=== PATIENT | male | born 1960 | race Caucasian/White ===

== ENCOUNTER 2022-09-27 06:23 | Day surgery (SDC) | payer OTHER, SELFPAY ==
[2022-07-26 12:17] VITALS: BMI 29.4
[2022-09-23 09:14] VITALS: BMI 29.4
--- NOTE | 2022-09-27 06:31 | W.PM.OPSFHP ---
Same Day Surgery H&P Indication for Procedure/HPI DATE OF PROCEDURE: September 27, 2022 CHIEF COMPLAINT/INDICATIONFOR SURGICAL PROCEDURE: Screening colonoscopy PREOP DIAGNOSIS: Screening colonoscopy PLANNED PROCEDURE: Operation Date: 09/27/22 07:30 Proposed Procedures p Colonoscopy 66229,Z12.11(Not Applicable) - Lane Mcrae MD This is a pleasant 63 years old gentleman referred to my practice for screening colonoscopy. Apparently the patient never had a colonoscopy before. And the Cologuard was tested positive. ROS All systems have been reviewed negative except as for the above or per problem list. Medications/Allergies* Home Medications Medication Instructions Recorded Confirmed Type albuterol sulfate 90 mcg/actuation 2 puff inhalation QID 05/12/22 09/23/22 History aerosol inhaler bumetanide 1 mg tablet 1 mg PO DAILY 05/12/22 09/23/22 History carvedilol 25 mg tablet 25 mg PO BID 05/12/22 09/23/22 History ergocalciferol (vitamin D2) 1 tab PO DAILY 05/12/22 09/23/22 History fluticasone furoate 100 1 inh inhalation DAILY 05/12/22 09/23/22 History mcg-vilanterol 25 mcg/dose inhalation powder (Breo Ellipta) garlic 1 tab PO DAILY 05/12/22 09/23/22 History insulin glargine U-300 conc 300 30 unit SUBCUT BID 05/12/22 09/23/22 History unit/mL (3 mL) subcutaneous pen insulin lispro 100 unit/mL See Rx Instructions SUBCUT TID 05/12/22 09/23/22 History subcutaneous pen (Humalog KwikPen (U-100) Insulin) rivaroxaban 15 mg tablet 15 mg PO DAILY 05/12/22 09/23/22 History sacubitril 97 mg-valsartan 103 mg 0.5 tab PO BID 05/12/22 09/23/22 History tablet (Entresto) simvastatin 40 mg tablet 40 mg PO DAILY 05/12/22 09/23/22 History umeclidinium 62.5 mcg/actuation 1 inh inhalation DAILY 05/12/22 09/23/22 History blister powder for inhalation (Incruse Ellipta) Allergies/Adverse Reactions Allergy/AdvReac Type Severity Reaction Status Date / Time No Known Allergies Allergy Verified 09/27/22 06:32 Pertinent History/Comorbid Conditions* Medical History (Updated 05/13/22 @ 14:17 by Cory Jones DO) Arthritis CHF (congestive heart failure) Chronic kidney disease COPD (chronic obstructive pulmonary disease) Diabetes mellitus Hidradenitis suppurativa History of cardiac pacemaker On home oxygen therapy Paroxysmal atrial fibrillation Thromboembolism Surgical History (Updated 05/13/22 @ 14:17 by Cory Jones DO) History of cataract surgery History of heart bypass surgery History of intravascular stent placement Aortic History of shoulder surgery Social History Smoking and tobacco status: current every day smoker Pertinent Exam Findings alert, oriented x 3, clear to auscultation bilaterally (Right upper chest pacemaker in place), regular rate & rhythm and procedure specific exam findings (Abdominal exam nontender nondistended soft) Recommendations Surgery/Procedure today (Colonoscopy with possible biopsy) Other Plans: Plan of care; After thorough history and physical examination and reviewing the chart, plan to perform screening colonoscopy. I discussed with the patient in details the risks,benefits,alternatives and indications.The risk of aspiration, bleeding, soft tissue injury, perforation of the colon ,missed lesions and other potential concomitant complications were explained to the patient in details,also the potential need for Laproscoy/Laparotomy to repair any related complications including but not limited to colectomy and or Closotomy.The patient understood this well and did agree to proceed. Rationale was carefully and clearly discussed with the patient.Appropriate informed consent have been reviewed and signed All questions have been answered and all concerns have been addressed to patient's satisfaction. Verbal and written Instructions were given to the patient for colonoscopy prep Coding Level of Care Code Acute Interpreter For [employer] for Emelia Huynh
[2022-09-27 06:47] VITALS: BP 104/65; PULSE 59; RESP 18; TEMP 36.1; O2SAT 98
[2022-09-27] MEDS: sodium chloride 0.9% 1,000 ML 30 ML IV (06:55)
[2022-09-27 06:57] LABS: Glucose Point of Care 253 mg/dL (70-110)
--- NOTE | 2022-09-27 07:57 | ANES.PREANE2 ---
Pre-Anesthetic Assessment Height/Weight: Height 1.78 m Weight 92.986 kg Temp Pulse Resp BP Pulse Ox O2 Del Method 97 F L 59 L 18 104/65 98 09/27/22 06:47 09/27/22 06:47 09/27/22 06:47 09/27/22 06:47 09/27/22 06:47 09/27/22 06:47 Preop Diagnosis: Screening colonoscopy Operation Date: 09/27/22 07:30 Proposed Procedures p Colonoscopy 84079,Z12.11(Not Applicable) - Lane Mcrae MD Was Beta Tien taken within 24 hours: N/A Was Clonidine taken within 24 hours: N/A Last intake: Intake Last Liquid Date 09/26/22 Last Liquid Time 22:00 Last Solid Date 09/26/22 Last Solid Time 18:00 Social Tobacco and No alcohol 1 pack(s) per day last cig last night Exam alert, oriented x 3, clear to auscultation bilaterally and regular rate & rhythm Airway Cervical ROM: within normal limits Mallampati: Class I Dentition: full History/ROS No significant history except as noted Pulmonary Chronic Obstructive Pulmonary Disease oxygen as needed. covid 2 months ago, not hospitalized CV/HEM Atrial Fibrillation, Arrythmia and Congestive Heart Failure saw heart doctor 3 months ago. denies angina. PPM/ICD None reported Hepatic None reported GI Gastroesophageal Reflux Disease Metabolic Diabetes Mellitus insulin [place] [facility] [place] None reported Neuropsych None reported Anesthetic Plan ASA status: 3 Anesthesia: Anesthesia Evaluation and MAC Risk of > 500 ml blood loss (7ml/kg in children): Yes, adequate IV access and fluids planned Medications/Allergies Home Medications Medication Instructions Recorded Confirmed Last Taken Type albuterol sulfate 90 mcg/actuation 2 puff inhalation QID 05/12/22 09/23/22 Unknown History aerosol inhaler bumetanide 1 mg tablet 1 mg PO DAILY 05/12/22 09/23/22 09/25/22 History carvedilol 25 mg tablet 25 mg PO BID 05/12/22 09/23/22 09/26/22 17:00 History ergocalciferol (vitamin D2) 1 tab PO DAILY 05/12/22 09/23/22 09/25/22 History fluticasone furoate 100 1 inh inhalation DAILY 05/12/22 09/23/22 09/25/22 History mcg-vilanterol 25 mcg/dose inhalation powder (Breo Ellipta) garlic 1 tab PO DAILY 05/12/22 09/23/22 09/25/22 History insulin glargine U-300 conc 300 30 unit SUBCUT BID 05/12/22 09/23/22 09/25/22 History unit/mL (3 mL) subcutaneous pen insulin lispro 100 unit/mL See Rx Instructions SUBCUT TID 05/12/22 09/27/22 09/26/22 07:00 History subcutaneous pen (Humalog KwikPen 2 units (U-100) Insulin) rivaroxaban 15 mg tablet 15 mg PO DAILY 05/12/22 09/23/22 09/25/22 History sacubitril 97 mg-valsartan 103 mg 0.5 tab PO BID 05/12/22 09/23/22 09/25/22 History tablet (Entresto) simvastatin 40 mg tablet 40 mg PO DAILY 05/12/22 09/23/22 09/25/22 History umeclidinium 62.5 mcg/actuation 1 inh inhalation DAILY 05/12/22 09/23/22 09/25/22 History blister powder for inhalation (Incruse Ellipta) Allergies Allergy/AdvReac Type Severity Reaction Status Date / Time No Known Allergies Allergy Verified 09/27/22 06:32 Current Medications Generic Name Dose Route Start Last Admin Trade Name Freq PRN Reason Stop Dose Admin Sodium Chloride 1,000 mls @ 30 mls/hr 09/27/22 06:30 09/27/22 06:55 Sodium Chloride 0.9% IV 09/28/22 06:29 30 mls/hr .Q24H RICK Administration PFSH Anesthesia Medical History Arthritis CHF (congestive heart failure) Chronic kidney disease COPD (chronic obstructive pulmonary disease) Diabetes mellitus Hidradenitis suppurativa History of cardiac pacemaker On home oxygen therapy Paroxysmal atrial fibrillation Thromboembolism Surgical History History of cataract surgery History of heart bypass surgery History of intravascular stent placement Aortic History of shoulder surgery Social History Smoking and tobacco status: current every day smoker Data Anesthesia Cardiac Studies: No Data to Display
[2022-09-27 08:22] VITALS: BP 76/48; PULSE 62; RESP 18; TEMP 36.1; O2SAT 94
[2022-09-27 08:33] VITALS: BP 102/56; PULSE 56; RESP 18; TEMP 36.2; O2SAT 98
--- NOTE | 2022-09-27 15:42 | ANE.PACU2 ---
Inpatient post-anesthesia follow up: Airway intact: Yes Vital signs: Temperature 97.2 F Pulse Rate 56 Respiratory Rate 18 Blood Pressure 102/56 Pulse Oximetry 98 Oxygen Delivery Me thod Room Air Oxygen Flow Rate Fraction of Inspir ed Oxygen Hydration adequate: Yes Nausea and vomiting: No Pain level: 1 Mental status: Baseline
== END 2022-09-27 08:51 | disposition home or self-care (01) ==
PROVIDERS: PCP Family Medicine; Visit Provider Surgery
PROC: 0DJD8ZZ Inspection of Lower Intestinal Tract, Via Natural or Artificial Opening Endoscopic (ICD-10-PCS; CPT 45378; principal; 2022-09-27 07:30)
DX: Z12.11 Encounter for screening for malignant neoplasm of colon (principal); M19.90 Unspecified osteoarthritis, unspecified site; J44.9 Chronic obstructive pulmonary disease, unspecified; Z95.0 Presence of cardiac pacemaker; I48.0 Paroxysmal atrial fibrillation; E11.22 Type 2 diabetes mellitus with diabetic chronic kidney disease; N18.9 Chronic kidney disease, unspecified; I50.9 Heart failure, unspecified; Z99.81 Dependence on supplemental oxygen; Z79.4 Long term (current) use of insulin; F17.210 Nicotine dependence, cigarettes, uncomplicated
CPT/HCPCS: 36416; 45378; 82962; J2704; J7030

== ENCOUNTER 2023-03-29 06:10 | Inpatient (IN) | payer MEDICARE, MEDICAID, SELFPAY ==
[2023-03-29] VITALS (13 sets, daily range): BP systolic 102–121; BP diastolic 60–78; PULSE 58–71; RESP 15–96; TEMP 36.6; O2SAT 92–97; BMI 29.9
--- NOTE | 2023-03-29 06:12 | XR_ITS ---
WS: [id number] PORTABLE CHEST HISTORY: dyspnea/cough COMPARISON: None available. Mild elevation of the LEFT hemidiaphragm. Moderate portion of the RIGHT lung is being obscured by the cardiac pacer defibrillator generator. Mild hazy attenuation throughout the lungs suggesting mild fluid overload. No focal consolidation. No pleural effusion or pneumothorax. Cardiac size: Mildly enlarged cardiac silhouette. Mediastinum/Aorta: Atherosclerosis aorta is mild. Prior CABG. No osseous abnormality seen. XR/XR chest 1V portable [id number] IMPRESSION: 1. No pneumonia or dense consolidation. 2. Mild chronic emphysema with mild interstitial edema versus pneumonitis. 3. Mild cardiomegaly.
--- NOTE | 2023-03-29 06:15 | W.ED.SOB ---
HPI - SOB/Dyspnea General: Chief Complaint: Shortness of Breath/Dyspnea Stated Complaint: SOB Time Seen by Provider: 03/29/23 06:11 Source: patient Mode of arrival: EMS History of Present Illness: HPI Narrative: 60-year-old male presents emergency room via EMS complaining of shortness of breath. He has a history of congestive heart failure and atrial fibrillation he has noticed last couple of days he has worsening orthopnea. He did take extra Bumex last night but does not feel like it really helped at all. He was given a nebulizer in route he states that did help some. EMS reported prior to the nebulizer his sats were in the upper 80s on arrival here on room air he is maintaining sats in the mid to low 90s. He says he has had intermittent chest comfort does not have any chest pain at this time he is known history coronary disease previous bypass graft. MD elicited complaint: shortness of breath and cough Pertinent past history: COPD and congestive heart failure Onset (ago): day(s) Timing: intermittent Severity: mild Exacerbating factors: exertion and coughing Relieving factors: oxygen, bronchodilators and upright position Known history of: COPD and congestive heart failure Associated symptoms: Reports chest pain and cough; Deny abdominal pain, chest congestion, diaphoresis, dizziness, extremity pain, fever(s), hemoptysis, lightheadedness, myalgias, nausea, orthopnea, palpitations, paresthesias, polydipsia, polyuria, rash, sense of impending doom, syncope or vomiting Treatment prior to arrival: oxygen and bronchodilator Review of Systems Const: Denies: fever(s), chills, body aches, change in appetite, fatigue, malaise or diaphoresis ENMT: Denies: throat pain, ear or mastoid pain, nasal discharge or nasal congestion Card: Reports: chest pain; Denies: palpitations, edema, lightheadedness, syncope, dyspnea on exertion or orthopnea Resp: Denies: dyspnea, productive cough, non-productive cough, hemoptysis or chest congestion GI: Denies: abdominal pain, nausea, vomiting, hematemesis, coffee ground emesis, diarrhea, constipation, bloating, hematochezia or melena : Denies: flank pain, dysuria, urinary frequency or urinary urgency Musc: Denies: extremity pain Skin/Breast: Denies: rash or pruritus Neuro: Denies: dizziness Endo: Denies: polyuria or polydipsia PFSH ED PFSH: Medical History Arthritis CHF (congestive heart failure) Chronic kidney disease COPD (chronic obstructive pulmonary disease) Diabetes mellitus Hidradenitis suppurativa History of cardiac pacemaker On home oxygen therapy Paroxysmal atrial fibrillation Thromboembolism Surgical History History of cataract surgery History of heart bypass surgery History of intravascular stent placement Aortic History of shoulder surgery Social History Smoking and tobacco status: current every day smoker Physical Exam Const: GENERAL APPEARANCE: cooperative and comfortable ORIENTATION/CONSCIOUSNESS: Yes awake, Yes oriented to person, Yes oriented to place and Yes oriented to time HENMT: COMMON NORMALS: normocephalic, atraumatic and hearing grossly normal bilaterally HEAD & SCALP: normocephalic and atraumatic Resp: COMMON NORMALS: normal respiratory effort, No retractions and No use of accessory muscles AUSCULTATION: crackles Cardio: COMMON NORMALS: regular rhythm and No murmurs present (Cardio) RATE: bradycardic RHYTHM: regular rhythm GI: COMMON NORMALS: Soft to palpation and No hepatosplenomegaly present AUSCULTATION: Yes normoactive bowel sounds PALPATION: Yes Soft to palpation, No Tenderness to palpation present (GI), No Guarding due to palpation present (GI) and Yes No hepatosplenomegaly present Extremity: COMMON NORMALS: normal to inspection, capillary refill normal, no clubbing, cyanosis or edema, no calf tenderness and no pedal edema Neuro: SENSORIUM/ORIENTATION: Yes oriented to person, Yes oriented to place and Yes oriented to time Skin: COMMON NORMALS: no rashes or lesions noted GENERAL SKIN EXAM: no rashes or lesions noted Course Vital Signs: Vital signs: Vital Signs Temperature 97.8 F 03/29/23 06:15 Pulse Rate 64 03/29/23 13:43 Respiratory Rate 19 H 03/29/23 13:43 Blood Pressure 113/78 03/29/23 13:43 Pulse Oximetry 97 03/29/23 13:43 Oxygen Delivery Me thod Nasal Cannula 03/29/23 13:49 Oxygen Flow Rate 2 03/29/23 10:32 MDM - SOB/Dyspnea Medical Decision Making Patient is mildly fluid overloaded. We did diurese him in the ER try to titrate his oxygen down however he desatted to 87 to 88% while at rest. He does have significant lower extremity edema and findings of congestive vascular congestion of the chest x-ray. Unfortunately also has chronic renal disease. We will admit discussed with hospitalist orders written Medical Records I reviewed the patient's medical records. Lab Data I reviewed the patient's lab results. 03/29/23 06:18 03/29/23 06:18 Labs/Radiology: Radiology Impressions Chest X-Ray 03/29/23 06:12 IMPRESSION: 1. No pneumonia or dense consolidation. 2. Mild chronic emphysema with mild interstitial edema versus pneumonitis. 3. Mild cardiomegaly. Laboratory Results WBC 5.2 10^3/uL (4.0-10.0) 03/29/23 06:18 RBC 4.33 10^6/uL (4.1-5.3) 03/29/23 06:18 Hgb 13.8 g/dL (11.7-16.6) 03/29/23 06:18 Hct 42.8 % (42.0-52.0) 03/29/23 06:18 MCV 98.8 fl (80-94) H 03/29/23 06:18 MCH 31.9 pg (28.0-34.0) 03/29/23 06:18 MCHC 32.2 g/dL (30.0-36.0) 03/29/23 06:18 RDW 13.9 % (12.1-15.1) 03/29/23 06:18 Plt Count 144 10^3/cmm (130-400) 03/29/23 06:18 MPV 11.1 fL (7.4-10.4) H 03/29/23 06:18 Neut % (Auto) 64.6 % 03/29/23 06:18 Lymph % (Auto) 22.5 % 03/29/23 06:18 Wirt % (Auto) 7.3 % 03/29/23 06:18 Eos % (Auto) 4.2 % 03/29/23 06:18 Baso % (Auto) 1.2 % 03/29/23 06:18 Neut # (Auto) 3.37 10^3/uL (1.8-7.7) 03/29/23 06:18 Lymph # (Auto) 1.2 10^3/uL (0.8-4.8) 03/29/23 06:18 Wirt # (Auto) 0.4 10^3/uL (0.2-0.9) 03/29/23 06:18 Eos # (Auto) 0.2 10^3/uL (0.0-0.8) 03/29/23 06:18 Baso # (Auto) 0.1 10^3/uL (0.0-0.1) 03/29/23 06:18 Nucleated RBC % (auto) 0 % 03/29/23 06:18 Nucleated RBCs # 0.0 /100WBC 03/29/23 06:18 Specimen Type Arterial 03/29/23 06:29 Sample Site Radial,left 03/29/23 06:29 ABG pH 7.35 (7.35-7.45) 03/29/23 06:29 ABG pCO2 49.0 mmHg (35-45) H 03/29/23 06:29 ABG pO2 58.2 mmHg (80.0-100.0) L 03/29/23 06:29 ABG HCO3 26.7 mmol/L (22-26) H 03/29/23 06:29 ABG O2 Saturation 91.8 03/29/23 06:29 ABG Base Excess 0.4 mmol/L (-2.0-2.0) 03/29/23 06:29 Dimitrios Test Pos 03/29/23 06:29 A-a O2 Gradient Not Reportable 03/29/23 06:29 Hematocrit 41.5 % (42-52) L 03/29/23 06:29 Hgb O2 Saturation 85.3 % (95-100) L 03/29/23 06:29 Carboxyhemoglobin 7.6 %THgb (0.4-20.1) 03/29/23 06:29 Methemoglobin Not Reportable 03/29/23 06:29 Total Hemoglobin 13.5 g/dL (14-18) L 03/29/23 06:29 Sodium 138.0 mmol/L (131-143) 03/29/23 06:29 Potassium 4.5 mmol/L (3.5-5.0) 03/29/23 06:29 Glucose 199.0 mg/dL (70-115) H 03/29/23 06:29 Ionized Calcium 1.2 mmol/L (1.1-1.4) 03/29/23 06:29 O2 Delivery Device None 03/29/23 06:29 FiO2 21.0 % 03/29/23 06:29 Dispatcher Chief Oil ID [email or web address] 03/29/23 06:29 Sodium 138 mmol/L (136-145) 03/29/23 06:18 Potassium 4.6 mmol/L (3.5-5.1) 03/29/23 06:18 Chloride 99 mmol/L (98-107) 03/29/23 06:18 Carbon Dioxide 27 mmol/L (22-29) 03/29/23 06:18 Anion Gap 16.6 (5-19) 03/29/23 06:18 BUN 66 mg/dL (8-23) H 03/29/23 06:18 Creatinine 3.0 mg/dL (0.7-1.2) H 03/29/23 06:18 GFR Calculation 21.3 mL/min (90-130) L 03/29/23 06:18 Glucose 173 mg/dL (65-115) H 03/29/23 06:18 POC Glucose 116 mg/dL (70-110) H 03/29/23 06:38 Calculated Osmolality 309 mOsm/kg (285-295) H 03/29/23 06:18 Calcium 8.8 mg/dL (8.5-10.5) 03/29/23 06:18 Total Bilirubin 0.6 mg/dL (0.15-1.2) 03/29/23 06:18 AST 10 U/L (0-40) 03/29/23 06:18 ALT 9 U/L (0-41) 03/29/23 06:18 Alkaline Phosphatase 98 U/L (40-130) 03/29/23 06:18 Troponin T Baseline 56 ng/L (0-15) H 03/29/23 06:18 Troponin T 120 Minute 55.94 ng/L (0-15) H 03/29/23 08:20 Delta Troponin T -0.06 ABS# (0-10) L 03/29/23 08:20 Troponin T Hi Sens 6Hr 49.46 ng/L (0-15) H 03/29/23 12:00 Troponin T Hi Sens 6Hr Delta -6.54 ng/L (0-12) L 03/29/23 12:00 Total Protein 6.9 g/dL (6.6-8.7) 03/29/23 06:18 Albumin 3.8 g/dL (3.5-5.2) 03/29/23 06:18 Globulin 3.1 g/dL (1.3-4.6) 03/29/23 06:18 Discharge Plan Discharge Patient Disposition: Admitted As Inpatient Admit Provider: David Jimenes Clinical Impression: Congestive heart failure Condition: Stable Coding Level of Care Code ED Youth Corrections Officer for Emelia Huynh
--- NOTE | 2023-03-29 06:22 | ECG_ITS ---
[facility] Test Date: 2023-03-29 Pat Name: Suleman Jacobs Department: Room: Gender: Male Cyber Security: : 1960 Requested By: Sage Rodriguez Order Number: [id number] Alison MD: Tali Foss M.D. Measurements Intervals [place] Rate: 64 P: 47 HI: 186 QRS: -53 QRSD: 190 T: 121 QT: 501 QTc: 518 Interpretive Statements ELECTRONIC VENTRICULAR PACEMAKER ABNORMAL RHYTHM ECG No previous ECG available for comparison Electronically Signed On 03-29-2023 16:24:46 CDT by Tali Foss M.D. [email or web address] [email or web address] [id number]
[2023-03-29] MEDS: ipratropium-albuterol 3 mL Neb INHALATION ×3 (06:26→21:36)
[2023-03-29 06:30] LABS: Basophils # 0.1 10^3/uL (0.0-0.1); Basophils % 1.2 %; Eosinophils # 0.2 10^3/uL (0.0-0.8); Eosinophils % 4.2 %; Hematocrit 42.8 % (42.0-52.0); Hemoglobin 13.8 g/dL (11.7-16.6); Lymphocytes # 1.2 10^3/uL (0.8-4.8); Lymphocytes % 22.5 %; Mean Corpuscular HGB Conc 32.2 g/dL (30.0-36.0); Mean Corpuscular Hemoglobin 31.9 pg (28.0-34.0); Mean Corpuscular Volume 98.8 fl (80-94); Mean Platelet Volume 11.1 fL (7.4-10.4); Monocytes # 0.4 10^3/uL (0.2-0.9); Monocytes % 7.3 %; Neutrophils # 3.37 10^3/uL (1.8-7.7); Neutrophils % 64.6 %; Nucleated Red Blood Cells % 0 %; Platelet Count 144 10^3/cmm (130-400); Red Blood Count 4.33 10^6/uL (4.1-5.3); Red Cell Distribution Width 13.9 % (12.1-15.1); White Blood Count 5.2 10^3/uL (4.0-10.0)
[2023-03-29] MEDS: dexamethasone 10 mg/mL INJ IVP (06:39)
[2023-03-29] MEDS: bumetanide 0.25 mg/mL SDV 4 mL 2 MG IVP (06:40)
[2023-03-29 06:46] LABS: Alanine Aminotransferase 9 U/L (0-41); Albumin Level 3.8 g/dL (3.5-5.2); Alkaline Phosphatase 98 U/L (40-130); Anion Gap 16.6 (5-19); Aspartate Amino Transferase 10 U/L (0-40); Blood Urea Nitrogen 66 mg/dL (8-23); Calcium 8.8 mg/dL (8.5-10.5); Carbon Dioxide 27 mmol/L (22-29); Chloride 99 mmol/L (98-107); Globulin 3.1 g/dL (1.3-4.6); Glomerular Filtration Rate 21.3 mL/min (90-130); Glucose 173 mg/dL (65-115); Osmolality Calculated 309 mOsm/kg (285-295); Potassium 4.6 mmol/L (3.5-5.1); Sodium 138 mmol/L (136-145); Total Bilirubin 0.6 mg/dL (0.15-1.2); Total Protein 6.9 g/dL (6.6-8.7); Troponin(5th) Baseline 56 ng/L (0-15)
[2023-03-29 06:48] LABS: ABG PH Result 7.35 (7.35-7.45); Base Excess ABG 0.4 mmol/L (-2.0-2.0); Blood Gas Allen Test POS; HCO3 ABG 26.7 mmol/L (22-26); Oxygen Saturation ABG 91.8; PO2 ABG 58.2 mmHg (80.0-100.0); Potassium Level - ABG 4.5 mmol/L (3.5-5.0)
[2023-03-29 06:49] LABS: Arterial Blood Gas Hematocrit 41.5 % (42-52); Blood Gas Sample Type Arterial
[2023-03-29 06:50] LABS: Ionized Calcium Level - ABG 1.2 mmol/L (1.1-1.4); Total Hemoglobin 13.5 g/dL (14-18)
[2023-03-29 06:51] LABS: Carboxyhemoglobin 7.6 %THgb (0.4-20.1); HGB O2 Sat 85.3 % (95-100)
[2023-03-29 06:52] LABS: Glucose Point of Care 116 mg/dL (70-110)
--- NOTE | 2023-03-29 08:22 | ECG_ITS ---
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 Measurements Intervals [place] Rate: 67 P: 89 PA: 138 QRS: -79 QRSD: 273 T: 110 QT: 612 QTc: 646 Interpretive Statements ELECTRONIC VENTRICULAR PACEMAKER PROLONGED QT INTERVAL CRITICAL TEST RESULT Compared to ECG 03/29/2023 06:15:51 Prolonged QT interval now present Electronically Signed On 03-29-2023 16:29:36 CDT by Tali Foss M.D. [id number]
[2023-03-29 09:06] LABS: Troponin 5 2HR 55.94 ng/L (0-15)
[2023-03-29 09:07] LABS: Troponin 5 2HR Delta -0.06 ABS# (0-10)
--- NOTE | 2023-03-29 10:04 | PC.PHAR ---
Addendum entered by Agustina Chiang 03/29/23 10:07: rx bottle for bumetanide 1mg take 2mg qam filled 03/18/23 90d/s pt states he is only taking 1mg qam states the dr decreased due to his kidney function Original Note: pt and pts verified pts medications-pt and pts states the pt hasnt had a machine to check his blood sugar for 6 to 8 weeks-states the pt hasnt used his levemir flexpen since 03/23/23 and not used his novolog flexpen for 6-8 weeks-pt states the dr dced his farxiga 10mg daily filled on 03/18/23 30d/s-notes are made in the pharmacy comments
--- NOTE | 2023-03-29 12:22 | ECG_ITS ---
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 Measurements Intervals [place] Rate: 59 P: 74 WV: 133 QRS: -66 QRSD: 257 T: 123 QT: 625 QTc: 624 Interpretive Statements ELECTRONIC VENTRICULAR PACEMAKER PROLONGED QT INTERVAL CRITICAL TEST RESULT Compared to ECG 03/29/2023 08:18:17 No significant changes Electronically Signed On 03-29-2023 16:28:45 CDT by Tali Foss M.D. [id number]
[2023-03-29 12:50] LABS: Troponin 5 6HR 49.46 ng/L (0-15); Troponin 5 6HR Delta -6.54 ng/L (0-12)
--- NOTE | 2023-03-29 13:48 | PM.HP ---
Providers/Chief Complaint Admitting Physician: David Jimenes MD Primary Care Provider: Serenity Andersen DO Chief Complaint: SOB History of Present Illness Suleman Jacobs is a 62 year old male with PMH of HFrEF, S/P AICD, DVT On xaralto, pax A.FIb,COPD, CKD came in today with c/o worsening SOB, orthopnea,PND,weight gain,worseing B/L L/E Swelling going on for the last 1 week, denied any chest pain,fever,cough,sick contact. xray chest showed: Mild chronic emphysema with mild interstitial edema versus pneumonitis.his other vitals and labs have been reviewed,patient received bumix 2 mg i.v today with good urine output and with some improvement HIS sob. Review of Systems General: Reports: 10 or more systems reviewed and unremarkable except in HPI and below Const: Denies: fever(s), chills, body aches, change in appetite or diaphoresis Card: Reports: edema, swelling of feet/ankles, dyspnea on exertion and orthopnea; Denies: palpitations or leg pain with exertion Resp: Reports: dyspnea; Denies: productive cough, wheezing or pain on inspiration GI: Denies: abdominal pain, nausea, vomiting, diarrhea or constipation : Denies: flank pain or difficulty urinating Musc: Denies: back pain, extremity pain or extremity swelling Neuro: Denies: headache(s), difficulty walking or confusion Medications/Allergies Home Medications Medication Instructions Recorded Confirmed Last Taken Type albuterol sulfate 90 mcg/actuation 2 puff inhalation QID PRN 05/12/22 03/29/23 Unknown History aerosol inhaler Shortness Of Breath bumetanide 1 mg tablet 1 mg PO QAM 05/12/22 03/29/23 03/29/23 History see pharmacy comment carvedilol 25 mg tablet 50 mg PO BID 05/12/22 03/29/23 03/28/23 History rivaroxaban 15 mg tablet 15 mg PO QPM 05/12/22 03/29/23 03/28/23 History simvastatin 40 mg tablet 40 mg PO BEDTIME 05/12/22 03/29/23 03/28/23 History cholecalciferol (vitamin D3) 10 10 mcg PO QAM 03/29/23 03/29/23 03/28/23 History mcg (400 unit) capsule (Vitamin D3) garlic 1,000 mg capsule 1,000 mg PO BEDTIME 03/29/23 03/29/23 03/28/23 History insulin aspart U-100 100 unit/mL See Rx Instructions .Route .COMPLEX 03/29/23 03/29/23 Unknown History (3 mL) subcutaneous pen (Novolog FlexPen U-100 Insulin aspart) insulin detemir U-100 100 unit/mL 30 unit SUBCUT BEDTIME 03/29/23 03/29/23 03/23/23 History (3 mL) subcutaneous pen (Levemir not used FlexPen) since 03/23/ sacubitril 49 mg-valsartan 51 mg 1 tab PO BID 03/29/23 03/29/23 03/28/23 History tablet (Entresto) umeclidinium 62.5 mcg-vilanterol 1 ea inhalation DAILY 03/29/23 03/29/23 Unknown History 25 mcg/actuation powdr for inhalation (Anoro Ellipta) Allergies Allergy/AdvReac Type Severity Reaction Status Date / Time No Known Allergies Allergy Verified 03/29/23 09:55 PFSH Acute PFSH: Medical History (Updated 03/29/23 @ 22:33 by David Jimenes MD) Arthritis CHF (congestive heart failure) Chronic kidney disease COPD (chronic obstructive pulmonary disease) Diabetes mellitus Hidradenitis suppurativa History of cardiac pacemaker On home oxygen therapy Paroxysmal atrial fibrillation Thromboembolism Surgical History History of cataract surgery History of heart bypass surgery History of intravascular stent placement Aortic History of shoulder surgery Social History Smoking and tobacco status: current every day smoker Vitals/I&O/Wt Last Vital Signs Temp 97.8 F 03/29/23 06:15 Pulse 66 03/29/23 10:32 Resp 15 03/29/23 09:20 BP 114/66 03/29/23 10:32 Pulse Ox 97 03/29/23 10:32 O2 Del Method Nasal Cannula 03/29/23 10:32 O2 Flow Rate 2 03/29/23 10:32 Weight last 48 hrs Weight 94.801 kg Physical Exam Const: COMMON NORMALS: patient oriented x3 HENMT: COMMON NORMALS: normocephalic and atraumatic HEAD & SCALP: normocephalic Resp: COMMON NORMALS: normal respiratory effort OTHER: Right basal crackles present, minimal fine wheezing, diminished air entry Cardio: COMMON NORMALS: regular rate, regular rhythm, S1 normal heart sound present, S2 normal heart sound present, No gallops present (Cardio), No murmurs present (Cardio), No rub (Cardio) and Peripheral pulses 2+ throughout RATE: regular rate RHYTHM: regular rhythm HEART SOUNDS: S1 normal heart sound present and S2 normal heart sound present PERIPHERAL PULSES: Peripheral pulses 2+ throughout GI: COMMON NORMALS: Normal to inspection, nondistended, normoactive bowel sounds present, Soft to palpation, non-tender, No hepatosplenomegaly present and no masses AUSCULTATION: Yes normoactive bowel sounds PALPATION: Yes Soft to palpation and Yes No hepatosplenomegaly present RECTAL EXAM: Yes deferred Extremity: NARRATIVE EXTREMITY EXAM: 1+ bilateral lower extremity pitting Neuro: COMMON NORMALS: patient oriented x3 Data 03/29/23 06:18 03/29/23 06:18 A&P Assessment and plan (1) Decompensated heart failure: (2) COPD (chronic obstructive pulmonary disease): (3) Acute kidney injury superimposed on CKD: (4) Elevated troponin: Plan 62 year old male with PMH of HFrEF, S/P AICD, DVT On xaralto, pax A.FIb,COPD, CKD came in today with c/o worsening SOB, orthopnea,PND,weight gain,worseing B/L L/E Swelling going on for the last 1 week, denied any chest pain,fever,cough,sick contact. Assessment : Decompensated HFrEF : xray chest showed: Mild chronic emphysema with mild interstitial edema versus pneumonitis.his other vitals and labs have been reviewed,patient received bumix Follow pro BNP Patient recently had 2D Echo done by his counseling psychologist, will get the records. Monitor I/O Charting Daily weight continue bumix 2 mg I.V Daily Monitor electrolytes Telemetry monitoring Likely ALEXIS ON CKD:likely 2/2 CRS SCR On a admission: 3 Baseline SCR Unkown Monitor BMP RENAL u/s Inatke/O Charting Avoid Nephrtotoxics Possible renal consult H/O DVT : On xaralto at home will place him on lovenox for now h/o Px A.fib : Continue carvedilol On Lovenox for Ac H/O COPD: Duo nebs , oxygen as needed Code status : Full code dvt ppx: on lovenox. Attestations Medical Necessity Statement*: Patient needs to be in hospital for the management of H/F.Anticipated LOS Greater then 2 midnights, Coding Level of Care Code Acute Code for Chg Fwd Diagnoses Decompensated heart failure I50.9 COPD (chronic obstructive pulmonary disease) J44.9 Acute kidney injury superimposed on CKD N17.9; N18.9 Elevated troponin R77.8
[2023-03-29 16:44] LABS: Glucose Point of Care 320 mg/dL (70-110)
[2023-03-29] MEDS: insulin lispro 100 unit/1 mL SUBCUT (17:09)
[2023-03-29] MEDS: carvedilol 25 mg Tablet 50 MG PO (17:10)
[2023-03-29 18:39] LABS: Protein Urine Neg (Negative); Urine Appearance Clear (CLEAR); Urine Color Yellow (Yellow); pH Urine 5 (5-7)
[2023-03-29 18:40] LABS: Add Urine Microscopic? YES; Bilirubin Urine Neg (Negative); Blood Urine 2+ (Negative); Glucose Urine UA 1+ (Normal); Ketones Urine 1+ (Negative); Leukocyte Esterase Urine Negative (Negative); Nitrate Urine Negative (Negative); Urobilinogen Urine Norm (Negative)
[2023-03-29 18:41] LABS: Add Urine Culture? No; Hyaline Casts Urine 0-4 /lpf; RBC Urine 0-4 /hpf (0-2); Squamous Epithelial Cell Urine 0-4 /hpf (0-5); WBC Urine 0-4 /hpf (0-5)
[2023-03-29 20:54] LABS: Glucose Point of Care 286 mg/dL (70-110)
[2023-03-29] MEDS: atorvastatin 40 mg Tablet 20 MG PO (21:32)
[2023-03-29] MEDS: insulin glargine 100 units/1 mL 20 UNIT SUBCUT (21:33)
[2023-03-30] VITALS (8 sets, daily range): BP systolic 90–110; BP diastolic 54–66; PULSE 55–74; RESP 14–23; TEMP 36.5–36.7; O2SAT 93–96
[2023-03-30 03:59] LABS: Basophils % 0.3 %; Hemoglobin 12.4 g/dL (11.7-16.6); Lymphocytes # 0.3 10^3/uL (0.8-4.8); Lymphocytes % 8.9 %; Mean Corpuscular HGB Conc 31.8 g/dL (30.0-36.0); Mean Corpuscular Hemoglobin 31.2 pg (28.0-34.0); Mean Corpuscular Volume 98.2 fl (80-94); Mean Platelet Volume 11.3 fL (7.4-10.4); Monocytes # 0.2 10^3/uL (0.2-0.9); Monocytes % 5.8 %; Neutrophils # 2.76 10^3/uL (1.8-7.7); Neutrophils % 84.7 %; Nucleated Red Blood Cells % 0 %; Platelet Count 124 10^3/cmm (130-400); Red Blood Count 3.97 10^6/uL (4.1-5.3); Red Cell Distribution Width 13.8 % (12.1-15.1); White Blood Count 3.3 10^3/uL (4.0-10.0)
[2023-03-30 04:36] LABS: Anion Gap 14.6 (5-19); Blood Urea Nitrogen 72 mg/dL (8-23); Calcium 8.7 mg/dL (8.5-10.5); Carbon Dioxide 28 mmol/L (22-29); Chloride 98 mmol/L (98-107); Glomerular Filtration Rate 22.1 mL/min (90-130); Glucose 359 mg/dL (65-115); Magnesium 2.3 mg/dL (1.7-2.3); NT Pro B Type Natriuretic Pept 27800 pg/mL (0-125); Osmolality Calculated 316 mOsm/kg (285-295); Phosphorus 4.6 mg/dL (2.5-4.5); Potassium 5.6 mmol/L (3.5-5.1); Sodium 135 mmol/L (136-145)
[2023-03-30] MEDS: cholecalciferol (vitamin D3) 1,000 unit Tablet 1000 UNIT PO (06:23)
[2023-03-30 06:36] LABS: Glucose Point of Care 366 mg/dL (70-110)
[2023-03-30] MEDS: ipratropium-albuterol 3 mL Neb INHALATION ×2 (07:51→11:30)
[2023-03-30] MEDS: carvedilol 25 mg Tablet 50 MG PO (08:22)
[2023-03-30] MEDS: bumetanide 0.25 mg/mL SDV 10 mL 2 MG IVP (08:23)
[2023-03-30] MEDS: insulin lispro 100 unit/1 mL SUBCUT (08:25)
--- NOTE | 2023-03-30 08:26 | US_ITS ---
WS: [id number] ULTRASOUND RENAL TECHNIQUE: Ultrasound examination of both kidneys. CLINICAL INFORMATION: ALEXIS COMPARISON: None. FINDINGS: RIGHT: Right kidney is normal in size and appearance. Echogenicity: Normal. Cortical thickness: 1.7 cm; Normal. Hydronephrosis: None. Perinephric fluid: None. Right kidney measures: 11.1 cm x 5.5 cm x 6.8 cm. LEFT: Left kidney is normal in size with mild cortical atrophy and lobulation.. Echogenicity: Normal. Cortical thickness: 1.0 cm; Hydronephrosis: None. Perinephric fluid: None. Left kidney measures: 10.8 cm x 4.8 cm x 5.2 cm. Normal visualized aorta. Mild diffuse bladder wall thickening. US/US renal BI* [id number] IMPRESSION: 1. No hydronephrosis in either kidney. 2. Mild LEFT renal cortical atrophy with cortical lobulation. 3. Mild diffuse bladder wall thickening can be seen with cystitis or bladder o utlet obstruction. 4. Trace perihepatic ascites.
[2023-03-30] MEDS: sodium polystyrene sulfonate 15 gm/60 mL Btl PO (08:45)
[2023-03-30 11:26] LABS: Glucose Point of Care 272 mg/dL (70-110)
--- NOTE | 2023-03-30 13:12 | PM.DCS ---
Discharge Providers Date of Admission: 03/29/23 12:28 Date of Discharge: March 30, 2023 Attending Provider at Admission: David Jimenes MD Attending Provider at Discharge: David Jimenes MD Primary Care Provider: Serenity Andersen DO Diagnoses at Discharge Discharge Diagnosis (1) Decompensated heart failure: Status: Acute (2) COPD (chronic obstructive pulmonary disease): Status: Acute (3) Acute kidney injury superimposed on CKD: Status: Acute (4) Elevated troponin: Status: Acute Reason for Visit Reason for Visit: SOB Hospital Course Hospital Course ?62 year old male with PMH of HFrEF, S/P AICD, DVT On xaralto, pax A.FIb,COPD, CKD came in today with c/o worsening SOB, orthopnea,PND,weight gain,worseing B/L L/E Swelling going on for the last 1 week, denied any chest pain,fever,cough,xray chest showed:?Mild chronic emphysema with mild interstitial edema versus pneumonitis, serum creatinine was also found to be 3, baseline serum creatinine is unknown, patient was admitted for the management of acute on chronic decompensated heart failure with Reduced ejection fraction, likely ALEXIS on CKD likely secondary to cardiorenal syndrome, patient was kept on IV diuresis, intake and output was charted, BMP was monitored, electrolytes were monitored, he was also kept on telemetry monitoring, patient was responding well to diuresis, shortness of breath had improved, lower extremity swelling was improving, patient was advised to stay for close monitoring of renal function, also for the management of hyperkalemia ,and for the continued management of heart failure, patient was adamant to go home, he was repeatedly explained the importance of being in the hospital and monitoring his ongoing problems, but since the patient was insistent for discharge, he was discharged on his home dose of Bumex and other medicines, Entresto has been kept on hold, in view of his current renal dysfunction, he has been asked to see his primary care physician and hand suture winder as well as roving court reporter TAVO, and to return to the ER in the event of any worsening symptoms. Patient has been discharged home. Physical Exam Const: COMMON NORMALS: patient oriented x3 HENMT: COMMON NORMALS: normocephalic and atraumatic HEAD & SCALP: normocephalic and atraumatic Resp: COMMON NORMALS: normal respiratory effort OTHER: Right basal crackles present Cardio: COMMON NORMALS: regular rate, regular rhythm, S1 normal heart sound present, S2 normal heart sound present, No gallops present (Cardio), No murmurs present (Cardio), No rub (Cardio) and Peripheral pulses 2+ throughout RATE: regular rate RHYTHM: regular rhythm HEART SOUNDS: S1 normal heart sound present and S2 normal heart sound present PERIPHERAL PULSES: Peripheral pulses 2+ throughout GI: COMMON NORMALS: Normal to inspection, nondistended, normoactive bowel sounds present, Soft to palpation, non-tender, No hepatosplenomegaly present and no masses AUSCULTATION: Yes normoactive bowel sounds PALPATION: Yes Soft to palpation and Yes No hepatosplenomegaly present RECTAL EXAM: Yes deferred Extremity: NARRATIVE EXTREMITY EXAM: 1+ bilateral lower extremity pitting Neuro: COMMON NORMALS: patient oriented x3 Discharge Data Studies Completed and Pending Completed Studies During Hospitalization Category Date Time Status XR chest 1V portable [id number] Stat Exams 03/29/23 06:12 Completed US renal BI* [id number] Routine Ultrasound 03/30/23 08:26 Completed Pending at discharge Category Date Time Status Basic Metabolic Panel AM LABS Lab 03/31/23 04:00 Ordered Basic Metabolic Panel AM LABS Lab 04/01/23 04:00 Ordered Complete Blood Count w/Auto AM LABS Lab 03/31/23 04:00 Ordered Complete Blood Count w/Auto AM LABS Lab 04/01/23 04:00 Ordered Radiology Impressions Chest X-Ray 03/29/23 06:12 IMPRESSION: 1. No pneumonia or dense consolidation. 2. Mild chronic emphysema with mild interstitial edema versus pneumonitis. 3. Mild cardiomegaly. Renal Ultrasound 03/30/23 08:26 IMPRESSION: 1. No hydronephrosis in either kidney. 2. Mild LEFT renal cortical atrophy with cortical lobulation. 3. Mild diffuse bladder wall thickening can be seen with cystitis or bladder outlet obstruction. 4. Trace perihepatic ascites. Laboratory Results WBC 3.3 10^3/uL (4.0-10.0) L 03/30/23 03:23 RBC 3.97 10^6/uL (4.1-5.3) L 03/30/23 03:23 Hgb 12.4 g/dL (11.7-16.6) 03/30/23 03:23 Hct 39.0 % (42.0-52.0) L 03/30/23 03: MCV 98.2 fl (80-94) H 03/30/23 03: MCH 31.2 pg (28.0-34.0) 03/30/23 03: MCHC 31.8 g/dL (30.0-36.0) 03/30/23 03: RDW 13.8 % (12.1-15.1) 03/30/23 03: Plt Count 124 10^3/cmm (130-400) L 03/30/23 03: MPV 11.3 fL (7.4-10.4) H 03/30/23 03: Neut % (Auto) 84.7 % 03/30/23 03: Lymph % (Auto) 8.9 % 03/30/23 03: Alfalfa % (Auto) 5.8 % 03/30/23 03: Eos % (Auto) 0.0 % 03/30/23 03: Baso % (Auto) 0.3 % 03/30/23 03: Neut # (Auto) 2.76 10^3/uL (1.8-7.7) 03/30/23 03: Lymph # (Auto) 0.3 10^3/uL (0.8-4.8) L 03/30/23 03: Alfalfa # (Auto) 0.2 10^3/uL (0.2-0.9) 03/30/23 03: Eos # (Auto) 0.0 10^3/uL (0.0-0.8) 03/30/23 03: Baso # (Auto) 0.0 10^3/uL (0.0-0.1) 03/30/23: Nucleated RBC % (auto) 0 % 03/30/23: Nucleated RBCs # 0.0 /100WBC 03/30/23 03: Specimen Type Arterial 03/29/23 06:29 Sample Site Radial,left 03/29/23 06:29 ABG pH 7.35 (7.35-7.45) 03/29/23 06:29 ABG pCO2 49.0 mmHg (35-45) H 03/29/23 06:29 ABG pO2 58.2 mmHg (80.0-100.0) L 03/29/23 06:29 ABG HCO3 26.7 mmol/L (22-26) H 03/29/23 06:29 ABG O2 Saturation 91.8 03/29/23 06:29 ABG Base Excess 0.4 mmol/L (-2.0-2.0) 03/29/23 06:29 Dimitrios Test Pos 03/29/23 06:29 A-a O2 Gradient Not Reportable 03/29/23 06:29 Hematocrit 41.5 % (42-52) L 03/29/23 06:29 Hgb O2 Saturation 85.3 % (95-100) L 03/29/23 06:29 Carboxyhemoglobin 7.6 %THgb (0.4-20.1) 03/29/23 06:29 Methemoglobin Not Reportable 03/29/23 06:29 Total Hemoglobin 13.5 g/dL (14-18) L 03/29/23 06:29 Sodium 138.0 mmol/L (131-143) 03/29/23 06:29 Potassium 4.5 mmol/L (3.5-5.0) 03/29/23 06:29 Glucose 199.0 mg/dL (70-115) H 03/29/23 06:29 Ionized Calcium 1.2 mmol/L (1.1-1.4) 03/29/23 06:29 O2 Delivery Device None 03/29/23 06:29 FiO2 21.0 % 03/29/23 06:29 Timber Appraiser ID [email or web address] 03/29/23 06:29 Sodium 135 mmol/L (136-145) L 03/30/23 03:23 Potassium 5.6 mmol/L (3.5-5.1) H 03/30/23 03:23 Chloride 98 mmol/L (98-107) 03/30/23 03:23 Carbon Dioxide 28 mmol/L (22-29) 03/30/23 03:23 Anion Gap 14.6 (5-19) 03/30/23 03:23 BUN 72 mg/dL (8-23) H 03/30/23 03:23 Creatinine 2.9 mg/dL (0.7-1.2) H 03/30/23 03:23 GFR Calculation 22.1 mL/min (90-130) L 03/30/23 03:23 Glucose 359 mg/dL (65-115) H 03/30/23 03:23 POC Glucose 272 mg/dL (70-110) H 03/30/23 11:18 Calculated Osmolality 316 mOsm/kg (285-295) H 03/30/23 03:23 Calcium 8.7 mg/dL (8.5-10.5) 03/30/23 03:23 Phosphorus 4.6 mg/dL (2.5-4.5) H 03/30/23 03:23 Magnesium 2.3 mg/dL (1.7-2.3) 03/30/23 03:23 Total Bilirubin 0.6 mg/dL (0.15-1.2) 03/29/23 06:18 AST 10 U/L (0-40) 03/29/23 06:18 ALT 9 U/L (0-41) 03/29/23 06:18 Alkaline Phosphatase 98 U/L (40-130) 03/29/23 06:18 Troponin T Baseline 56 ng/L (0-15) H 03/29/23 06:18 Troponin T 120 Minute 55.94 ng/L (0-15) H 03/29/23 08:20 Delta Troponin T -0.06 ABS# (0-10) L 03/29/23 08:20 Troponin T Hi Sens 6Hr 49.46 ng/L (0-15) H 03/29/23 12:00 Troponin T Hi Sens 6Hr Delta -6.54 ng/L (0-12) L 03/29/23 12:00 NT-Pro-B Natriuret Pep 94425 pg/mL (0-125) H 03/30/23 03:23 Total Protein 6.9 g/dL (6.6-8.7) 03/29/23 06:18 Albumin 3.8 g/dL (3.5-5.2) 03/29/23 06:18 Globulin 3.1 g/dL (1.3-4.6) 03/29/23 06:18 Urine Color Yellow (Yellow) 03/29/23 18:06 Urine Appearance Clear (CLEAR) 03/29/23 18:06 Urine pH 5 (5-7) 03/29/23 18:06 Ur Specific [place] 1.020 (1.005-1.030) 03/29/23 18:06 Urine Protein Neg (Negative) 03/29/23 18:06 Urine Glucose (UA) 1+ (Normal) H 03/29/23 18:06 Urine Ketones 1+ (Negative) H 03/29/23 18:06 Urine Blood 2+ (Negative) H 03/29/23 18:06 Urine Nitrate Negative (Negative) 03/29/23 18:06 Urine Bilirubin Neg (Negative) 03/29/23 18:06 Urine Urobilinogen Norm mg/dL (Negative) 03/29/23 18:06 Ur Leukocyte Esterase Negative (Negative) 03/29/23 18:06 Urine RBC 0-4 /hpf (0-2) H 03/29/23 18:06 Urine WBC 0-4 /hpf (0-5) H 03/29/23 18:06 Ur Squamous Epith Cells 0-4 /hpf (0-5) H 03/29/23 18:06 Amorphous Sediment Not Reportable 03/29/23 18:06 Urine Bacteria None /hpf (NONE) 03/29/23 18:06 Hyaline Casts 0-4 /lpf H 03/29/23 18:06 Vitals Last Vital Signs Temp 97.7 F 03/30/23 11:47 Pulse 60 03/30/23 11:47 Resp 23 H 03/30/23 11:47 BP 103/62 03/30/23 11:47 Pulse Ox 96 03/30/23 11:47 O2 Del Method Nasal Cannula 03/30/23 11:47 O2 Flow Rate 1.5 03/30/23 11:30 Discharge Plan Discharge Patient Disposition: Home Condition: Stable Prescriptions: Continued albuterol sulfate 90 mcg/actuation HFA aerosol inhaler 2 puff inhalation QID PRN (Reason: Shortness Of Breath) bumetanide 1 mg tablet 1 mg PO QAM carvedilol 25 mg tablet 50 mg PO BID Rx Instructions: must administer with a meal/food rivaroxaban 15 mg tablet 15 mg PO QPM Rx Instructions: must administer with evening meal simvastatin 40 mg tablet 40 mg PO BEDTIME garlic 1,000 mg Capsule 1,000 mg PO BEDTIME Vitamin D3 10 mcg (400 unit) Capsule 10 mcg PO QAM insulin aspart U-100 [Novolog FlexPen U-100 Insulin] 100 unit/mL (3 mL) insulin pen See Rx Instructions .ROUTE .COMPLEX Rx Instructions: sliding scale tid prn (not used in 6 weeks as of 03/29/23 per pts and pt) Levemir FlexPen 100 unit/mL (3 mL) insulin pen 30 unit SUBCUT BEDTIME Anoro Ellipta 62.5-25 mcg/actuation blister with device 1 ea INHALATION DAILY Held Entresto 49-51 mg tablet 1 tab PO BID Hold Instructions: Resume on 04/27/23. Patient will see his roving court reporter before resuming it. Discharge Orders: Discharge Order (Routine); Ordered 03/30/23 Ordered By: David Jimenes Referrals: Serenity Andersen DO [Primary Care Provider] - 04/01/23 8:20 am () Patient Instructions: Acute Kidney Injury (DC), CHF Stoplight, COPD Stoplight, Opioid Safety, Pain Management Discharge Attestations Time Spent in Discharge Care*: less than 30 min Quality Metrics Clinical Quality Measures [ No reported AMI, CVA or VTE this stay] Coding Level of Care Code Acute Code for Chg Fwd Diagnoses Decompensated heart failure I50.9 COPD (chronic obstructive pulmonary disease) J44.9 Acute kidney injury superimposed on CKD N17.9; N18.9 Elevated troponin R77.8
--- NOTE | 2023-03-30 13:28 | PC.NURSE ---
Patient stated that he is going to leave today no matter what. Physician and nurse both spoke with patient about kindey function and how it would be better to monitor the patient's output while in the hospital while taking PO Bumex but patient still asked to be discharged.
== END 2023-03-30 13:38 | disposition home or self-care (01) | DRG 292 ==
LOC: ER 09:47 → CSU 12:28
PROVIDERS: Admitting Provider Internal Medicine; Emergency Provider Family Medicine; PCP Family Medicine; Visit Provider Internal Medicine
DX: I50.23 Acute on chronic systolic (congestive) heart failure (principal); N17.9 Acute kidney failure, unspecified; I48.0 Paroxysmal atrial fibrillation; Z79.01 Long term (current) use of anticoagulants; N18.9 Chronic kidney disease, unspecified; J43.9 Emphysema, unspecified; E11.22 Type 2 diabetes mellitus with diabetic chronic kidney disease; Z79.4 Long term (current) use of insulin; Z95.810 Presence of automatic (implantable) cardiac defibrillator; Z99.81 Dependence on supplemental oxygen; I25.10 Atherosclerotic heart disease of native coronary artery without angina pectoris; Z95.1 Presence of aortocoronary bypass graft; Z86.718 Personal history of other venous thrombosis and embolism; R77.8 Other specified abnormalities of plasma proteins; F17.210 Nicotine dependence, cigarettes, uncomplicated
CPT/HCPCS: 36415; 36416; 36600; 71045; 76770; 80048; 80051; 80053; 81001; 82330; 82805; 82962; 83735; 83880; 84100; 84484; 85025; 93005; 94640; 96372; 96374; 99285; A9270; J1100; J1815; J3490

== ENCOUNTER 2023-09-01 15:51 | Inpatient (IN) | payer MEDICARE, MEDICAID, SELFPAY ==
[2023-09-01] VITALS (38 sets, daily range): BP systolic 72–107; BP diastolic 52–75; PULSE 72–131; RESP 1–34; TEMP 36.4; O2SAT 83–100; BMI 28.7; BMI 35.3
--- NOTE | 2023-09-01 15:54 | ECG_ITS ---
[facility] Test Date: 2023-09-01 Pat Name: Suleman Jacobs Department: Room: Gender: Male Memorandum Statement Clerk: : 1960 Requested By: Sage Rodriguez Order Number: [id number] Alison MD: Wendy Ma M.D. Measurements Intervals [place] Rate: 98 P: 0 MO: 0 QRS: -52 QRSD: 163 T: 113 QT: 445 QTc: 570 Interpretive Statements ATRIAL FIBRILLATION INTRAVENTRICULAR CONDUCTION DELAY [130+ ms QRS DURATION] Intermittent demand ventricular electronic pacing Anterolateral Q waves, old myocardial infarction. Compared to previous EKG 03/29/2023, ventricular-paced complex(es) is now intermittent. Electronically Signed On 09-02-2023 14:04:12 CHIEF PHYSICAL THERAPIST by Wendy Ma M.D. [email or web address]
--- NOTE | 2023-09-01 15:54 | CTR_ITS ---
PROCEDURE INFORMATION: Exam: CT Head Without Contrast Exam date and time: 09/01/2023 6:12 PM Age: 63 years old Clinical indication: Stroke-like symptoms; Altered mental status/memory loss; Additional info: Symptoms of acute stroke TECHNIQUE: Imaging protocol: Computed tomography of the head without contrast. Radiation optimization: All CT scans at this facility use at least one of these dose optimization techniques: automated exposure control; mA and/or kV adjustment per patient size (includes targeted exams where dose is matched to clinical indication); or iterative reconstruction. Other technique: STROKE PROTOCOL was implemented. REPORTING DATA: Count of CT and Cardiac NM exams in prior 12 months: This patient has received 0 known CTs and 0 known cardiac nuclear medicine studies in the 12 months prior to the current study. COMPARISON: No relevant prior studies available. RADIATION DOSE METRICS: Total DLP (mGy-cm): 1222.18 FINDINGS: Brain: There is moderate cortical atrophy. Low-density changes in the white matter are consistent with nonspecific small vessel chronic ischemic change. There is no intracranial mass, hemorrhage or edema. There are small old infarcts in both cerebellar hemispheres. Cerebral ventricles: No ventriculomegaly. Paranasal sinuses: There is mucous retention cysts in the left maxillary antrum. Mastoid air cells: Visualized mastoid air cells are well aerated. Bones/joints: Unremarkable. No acute fracture. Soft tissues: Unremarkable. CT/CT head thrombolytic [id number] IMPRESSION: Old lacunar disease. No acute intracranial finding. ASSESSMENT: ASPECTS (Donya Stroke Program Early CT Score) is 10.
--- NOTE | 2023-09-01 15:59 | XRR_ITS ---
PROCEDURE INFORMATION: Exam: XR Chest Exam date and time: 09/01/2023 5:45 PM Age: 63 years old Clinical indication: Prior surgery; Surgery date: 6+ months; Surgery type: Pacemaker; Patient HX: Low o2 sat; AMS; Dyspnea; Cough TECHNIQUE: Imaging protocol: Radiologic exam of the chest. Views: 1 view. COMPARISON: CR XR chest 1V portable [id number] 03/29/2023 6:58 AM FINDINGS: Limitations: The study is made with less than full inspiration. Tubes, catheters and devices: There is transvenous AICD in place with leads in appropriate position. Lungs: Visualized portions of the lungs are clear. There is no pulmonary venous congestion. Pleural spaces: Unremarkable. No pleural effusion. No pneumothorax. Heart/Mediastinum: The heart is moderately enlarged. Bones/joints: Unremarkable. XR/XR chest 1V portable [id number] IMPRESSION: No acute infiltrate.
[2023-09-01 16:15] LABS: Glucose Point of Care 278 mg/dL (70-110)
--- NOTE | 2023-09-01 16:18 | ED_ITS ---
Documented by User: Sage Williamson DO 09/02/23 06:16 HPI - General Adult General: Chief complaint: Altered Mental Status Stated complaint: stroke like symptoms Time Seen by Provider: 09/01/23 15:52 Source: patient Mode of arrival: ambulatory History of Present Illness: 63-year-old male presents emergency room with weakness difficulty with speech. Fell this morning around 3 AM. The abdomen is somewhat distended as well when I talk to the patient I do not see any focal neurologic deficits they reported a last known well from EMS around 12 hours ago. He does have an implantable defibrillator but it is an odd brand and we cannot interrogate it. He denies any chest pain. he has some difficulty with speech he tells me that similar to what his baseline is. He is on Xarelto. Patient is mildly hypoxic normally does not require oxygen at home with 2 L improved to low 90s. He denies any c hest pain. His did arrive later and confirms that his speech is at baseline. His states he was recently diagnosed with a UTI but had not started the antibiotics. Onset (ago): hour(s) (12) Associated symptoms: Reports malaise; Deny chest pain, confusion, cough, diaphoresis, decreased appetite, dyspnea, fevers/chills, headache(s), nausea, rash, palpitations, seizures, short of breath, syncope, vomiting or weakness Treatments prior to arrival: none Review of Systems Const: Reports: fatigue and malaise; Denies: fever(s), chills or diaphoresis Card: Reports: edema and swelling of feet/ankles; Denies: chest pain, palpitations or syncope Resp: Denies: dyspnea GI: Denies: abdominal pain, nausea or vomiting : Denies: dysuria, urinary frequency or urinary urgency Musc: Denies: neck pain or back pain Skin/Breast: Denies: rash Neuro: Denies: headache(s) or confusion PFSH ED PFSH: Medical History Acute kidney injury superimposed on CKD Arthritis CHF (congestive heart failure) Chronic kidney disease Congestive heart failure COPD (chronic obstructive pulmonary disease) Decompensated heart failure Diabetes mellitus Elevated troponin Hidradenitis suppurativa History of cardiac pacemaker On home oxygen therapy Paroxysmal atrial fibrillation Thromboembolism Surgical History History of cataract surgery History of heart bypass surgery History of intravascular stent placement Aortic History of shoulder surgery Social History Smoking and tobacco/nicotine status: current every day tobacco/nicotine user Physical Exam Const: ORIENTATION/CONSCIOUSNESS: Yes awake and Yes oriented to person HENMT: COMMON NORMALS: normocephalic and atraumatic HEAD & SCALP: normocephalic and atraumatic Resp: COMMON NORMALS: normal respiratory effort, No retractions and No use of accessory muscles AUSCULTATION: rales Cardio: RATE: tachycardic RHYTHM: abnormal rhythm GI: COMMON NORMALS: Soft to palpation and No hepatosplenomegaly present INSPECTION: Yes abdominal distension (mild) AUSCULTATION: Yes normoactive bowel sounds PALPATION: Yes Soft to palpation, No Tenderness to palpation present (GI), No Guarding due to palpation present (GI) and Yes No hepat osplenomegaly present Extremity: COMMON NORMALS: normal to inspection, capillary refill normal, no clubbing, cyanosis or edema, no calf tenderness and no pedal edema Neuro: SENSORIUM/ORIENTATION: Yes oriented to person Skin: COMMON NORMALS: no rashes or lesions noted GENERAL SKIN EXAM: no rashes or lesions noted Course Vital Signs: Vital signs: Vital Signs Temperature 97.6 F 09/01/23 21:03 Pulse Rate 101 H 09/01/23 21:03 Respiratory Rate 14 09/01/23 21:03 Blood Pressure 101/75 09/01/23 21:03 Pulse Oximetry 97 09/01/23 21:03 Oxygen Delivery Me thod Mechanical Ventil ation 09/01/23 21:35 Oxygen Flow Rate 2 09/01/23 18:35 Fraction of Inspir ed Oxygen 40 09/01/23 20:40 MDM - General Adult Medical Decision Making Patient initially presented EMS had been concern of stroke but he has no focal neurologic deficits. He has dysarthria but is at baseline per family. Initial head CT does not show any bleeding.patient presents hypotensive was initially started on dopamine. He was switched to Levophed after he became overly tachycardic there was some rate related EKG changes but he had no chest pain at that time. EKG changes in 2 3 and aVF on EKG at 1554, no reciprocal changes. His first troponin is 177. His INR is 6.2. We will trend his troponin. His white count is normal. Did not start any anticoagulation due to his elevated INR and PTT. Lactic acid is 4. Suspect patient is in heart failure we have given him some fluid to try to improve blood pressure switched him to Levophed. His initial troponin is 177 and suspect that may be due to demand ischemia he does have some EKG changes but he has no chest pain at this time we will trend his troponins. CT of his abdomen is pending. We will going to attempt to inte rrogate pacer however patient. Blood pressure has improved with Levophed. Patient presents here with altered mental status he is hypotensive here as well I took patient over from Dr. Bearden. He is pending blood work and CT scan. He does have a UTI start antibiotics I did intubate him as he is altered did place a central line as well because he is required pressors. He is given 2 L of fluids here he does have the appearance of fluid overload his internal jugular was dilated on central line placement did not get more fluids and 2 L as I feel will do more harm. Lab Data 09/01/23 18:47 09/01/23 18:[address] 09/01/23 15:54 IMPRESSION: Old lacunar disease. No acute intracranial finding. ASSESSMENT: ASPECTS (Donya Stroke Program Early CT Score) is 10. Abdomen/Pelvis CT 09/01/23 18:10 IMPRESSION: 1. Limited exam due to motion and streak artifact 2. Cholelithiasis 3. Ascites 4. Anasarca 5. Cardiomegaly 6. Small pleural effusions 7. Noncalcified right lower lobe pulmonary nodule. Further evaluation or short-term follow-up recommended per Fleischner society guidelines as described above REFERENCES: Isaias H, et al. Guidelines for Management of Incidental Pulmonary Nodules Detected on CT Images: From the Fleischner Society 2017. Radiology. 2017;284(1):228-243. Chest X-Ray 09/01/23 22:45 IMPRESSION: 1. Increasing left lower lobe infiltrate or atelectasis. 2. Other findings not significantly changed. Laboratory Results WBC 7.48 10^3/uL (3.29-11.43) 09/01/23 16:12 RBC 4.35 10^6/uL (3.85-5.65) 09/01/23 16:12 Hgb 12.80 g/dL (11.27-16.99) 09/01/23 18:47 Hct 40.9 % (37-53) 09/01/23 18:47 MCV 100.5 fl (82-101) 09/01/23 16:12 MCH 32.2 pg (27-33) 09/01/23 16:12 MCHC 32.0 g/dL (30-55) 09/01/23 16:12 RDW 14.5 % (12.1-15.1) 09/01/23 16:12 Plt Count 115 10^3/cmm (157-399) L 09/01/23 16:12 MPV 11.5 fL (7.4-10.4) H 09/01/23 16:12 Neut % (Auto) 81.7 % 09/01/23 16:12 Lymph % (Auto) 10.2 % 09/01/23 16:12 [place] % (Auto) 7.6 % 09/01/23 16:12 Eos % (Auto) 0.0 % 09/01/23 16:12 Baso % (Auto) 0.1 % 09/01/23 16:12 Neut # (Auto) 6.11 10^3/uL (1.8-7.7) 09/01/23 16:12 Lymph # (Auto) 0.8 10^3/uL (0.8-4.8) 09/01/23 16:12 [place] # (Auto) 0.6 10^3/uL (0.2-0.9) 09/01/23 16:12 Eos # (Auto) 0.0 10^3/uL (0.0-0.8) 09/01/23 16:12 Baso # (Auto) 0.0 10^3/uL (0.0-0.1) 09/01/23 16:12 Nucleated RBC % (auto) 0 % 09/01/23 16:12 Nucleated RBCs # 0.0 /100WBC 09/01/23 16:12 PT 57.50 SECONDS (12.1-14.9) H 09/01/23 16:12 INR 6.21 (0.8-1.2) H* 09/01/23 16:12 APTT 45.9 SECONDS (23.9-36.7) H 09/01/23 16:12 Specimen Type Arterial 09/01/23 16:11 Sample Site Brachial, right 09/01/23 16:11 ABG pH 7.35 (7.35-7.45) 09/01/23 16:11 ABG pCO2 39.4 mmHg (35-45) 09/01/23 16:11 ABG pO2 82.1 mmHg (80.0-100.0) 09/01/23 16:11 ABG PO2/FiO2 Ratio 0 09/01/23 16:11 ABG HCO3 21.7 mmol/L (22-26) L 09/01/23 16:11 ABG O2 Saturation 96.6 09/01/23 16:11 ABG Base Excess -3.6 mmol/L (-2.0-2.0) L 09/01/23 16:11 Dimitrios Test N/a 09/01/23 16:11 A-a O2 Gradient Not Reportable 09/01/23 16:11 Hematocrit 40.9 % (42-52) L 09/01/23 16:11 Hgb O2 Saturation 93.9 % (95-100) L 09/01/23 16:11 Carboxyhemoglobin 2.5 %THgb (0.4-20.1) 09/01/23 16:11 Methemoglobin 0.2 % (0.4-1.5) L 09/01/23 16:11 Total Hemoglobin 13.4 g/dL (14-18) L 09/01/23 16:11 Sodium 133.0 mmol/L (131-143) 09/01/23 16:11 Potassium 4.8 mmol/L (3.5-5.0) 09/01/23 16:11 Glucose 218.0 mg/dL (70-115) H 09/01/23 16:11 Ionized Calcium 1.1 mmol/L (1.1-1.4) 09/01/23 16:11 O2 Delivery Device Nc 09/01/23 16:11 O2 Liters/Min 2.0 % 09/01/23 16:11 FiO2 2.0 % 09/01/23 16:11 Bombsight Specialist ID glc 09/01/23 16:11 Sodium 136 mmol/L (136-145) 09/01/23 18:47 Potassium 4.5 mmol/L (3.5-5.1) 09/01/23 18:47 Chloride 101 mmol/L (98-107) 09/01/23 18:47 Carbon Dioxide 21 mmol/L (22-29) L 09/01/23 18:47 Anion Gap 18.5 (5-19) 09/01/23 18:47 BUN 62 mg/dL (8-23) H 09/01/23 18:47 Creatinine 2.8 mg/dL (0.7-1.2) H 09/01/23 18:47 GFR Calculation 23.0 mL/min (90-130) L 09/01/23 18:47 Glucose 190 mg/dL (65-115) H 09/01/23 18:47 POC Glucose 278 mg/dL (70-110) H 09/01/23 16:08 Estimat Average Glucose 189 09/01/23 16:12 Hemoglobin A1c 8.2 % (4.0-6.0) H 09/01/23 16:12 Calculated Osmolality 305 mOsm/kg (285-295) H 09/01/23 18:47 Lactic Acid 4.0 mmol/L (0.5-2.2) H 09/01/23 16:12 Lactic Acid (Sepsis) 3.2 mmol/L (0.5-2.2) H 09/01/23 18:47 Calcium 8.0 mg/dL (8.5-10.5) L 09/01/23 18:47 Magnesium 2.3 mg/dL (1.7-2.3) 09/01/23 18:47 Total Bilirubin 1.8 mg/dL (0.15-1.2) H 09/01/23 18:47 AST 433 U/L (0-40) H 09/01/23 18:47 ALT 303 U/L (0-41) H 09/01/23 18:47 Alkaline Phosphatase 99 U/L (40-130) 09/01/23 18:47 Ammonia 32 umol/L (16-60) 09/01/23 18:47 Creatine Kinase 216 U/L (39-308) 09/01/23 18:47 Troponin T Baseline 177 ng/L (0-15) H* 09/01/23 16:12 Troponin T 120 Minute 209.8 ng/L (0-15) H 09/01/23 18:47 Delta Troponin T 32.8 ABS# (0-10) H* 09/01/23 18:47 NT-Pro-B Natriuret Pep Cancelled 09/01/23 16:12 Total Protein 5.8 g/dL (6.6-8.7) L 09/01/23 18:47 Albumin 3.1 g/dL (3.5-5.2) L 09/01/23 18:47 Globulin 2.7 g/dL (1.3-4.6) 09/01/23 18:47 Lipase 13 U/L (13-60) 09/01/23 18:47 Urine Color Dark yellow (Yellow) 09/01/23 16:45 Urine Appearance Sl hazy (CLEAR) A 09/01/23 16:45 Urine pH 5 (5-7) 09/01/23 16:45 Ur Specific Jackson 1.025 (1.005-1.030) 09/01/23 16:45 Urine Protein 3+ (Negative) H 09/01/23 16:45 Urine Glucose (UA) Norm (Normal) 09/01/23 16:45 Urine Ketones Negative (Negative) 09/01/23 16:45 Urine Blood 2+ (Negative) H 09/01/23 16:45 Urine Nitrate Positive (Negative) H 09/01/23 16:45 Urine Bilirubin 2+ (Negative) H 09/01/23 16:45 Urine Urobilinogen Norm mg/dL (Negative) 09/01/23 16:45 Ur Leukocyte Esterase 1+ (Negative) H 09/01/23 16:45 Urine RBC 0-4 /hpf (0-2) H 09/01/23 16:45 Urine WBC 0-4 /hpf (0-5) H 09/01/23 16:45 Ur Squamous Epith Cells 0-4 /hpf (0-5) H 09/01/23 16:45 Amorphous Sediment Not Reportable 09/01/23 16:45 Urine Bacteria 2+ /hpf (NONE) H 09/01/23 16:45 Hyaline Casts 0-4 /lpf H 09/01/23 16:45 Salicylates 1.2 mg/dL (3-10) L 09/01/23 18:47 Urine Opiates Screen Negative ng/mL (Negative) 09/01/23 16:45 Acetaminophen < 5.0 ug/mL (10-30) L 09/01/23 18:47 Ur Barbiturates Screen Negative ng/mL (Negative) 09/01/23 16:45 Ur Phencyclidine Scrn Negative ng/mL (Negative) 09/01/23 16:45 Ur Amphetamines Screen Negative ng/mL (Negative) 09/01/23 16:45 U Benzodiazepines Scrn Negative ng/mL (Negative) 09/01/23 16:45 Urine Cocaine Screen Negative ng/mL (Negative) 09/01/23 16:45 U Marijuana (THC) Screen Negative ng/mL (Negative) 09/01/23 16:45 Ethyl Alcohol < 10 mg/dL (0-10) 09/01/23 18:47 Discharge Plan Discharge Patient Disposition: Admitted As Inpatient Admit Provider: Yas Cochran Clinical Impression: Altered mental status, Acute cystitis, Acute hypotension, Diabetes mellitus, Chronic kidney disease, Acute liver failure, Acute exacerbation of CHF (congestive heart failure), Paroxysmal atrial fibrillation, Elevated troponin I level Condition: Stable Coding Level of Care Code ED Bd Special Education Teacher for Emelia Huynh NIH stroke score NIHSS Level Of Consciousness - 1a: 1 Level Of Consciousness Questions - 1b: One Correct Level Of Consciousness Commands - 1c: Both Correct Best Gaze - 2: Normal Visual Pink - 3: No Visual Loss Facial Palsy - 4: Normal Motor Arm Right - 5: No Drift (Weakness equal bilaterally) Motor Arm Left - 5: No Drift (Weakness equal bilaterally) Motor Leg Right - 6: No Drift (Weakness equal bilaterally) Motor Leg Left - 6: No Drift (Weakness equal bilaterally) Limb Ataxia - 7: Absent Sensory - 8: Normal Best Language - 9: No Aphasia (Confirmed by family baseline) Dysarthia - 10: Mild/Moderate Dysarthia (Confirmed by family at baseline) Extinction And Inattention - 11: 0 Score Total Score: 3 Documented by User: Debbie Gold MD 09/01/23 20:36 HPI - General Adult General: Chief complaint: Altered Mental Status Stated complaint: stroke like symptoms Time Seen by Provider: 09/01/23 15:52 PFSH ED PFSH: Medical History Acute kidney injury superimposed on CKD Arthritis CHF (congestive heart failure) Chronic kidney disease Congestive heart failure COPD (chronic obstructive pulmonary disease) Decompensated heart failure Diabetes mellitus Elevated troponin Hidradenitis suppurativa History of cardiac pacemaker On home oxygen therapy Paroxysmal atrial fibrillation Thromboembolism Surgical History History of cataract surgery History of heart bypass surgery History of intravascular stent placement Aortic History of shoulder surgery Social History Smoking and tobacco/nicotine status: current every day tobacco/nicotine user Procedures Central Line Placement Right IJ: Time Out Performed: Yes Patient Placed on Monitor/Pulse Ox: Yes MD Prep: mask, gown and gloves Central Line Prep: Povidone-Iodine 1% Ultrasound Used for Placement: Yes Central Line Lumen Inserted: triple Post Procedure: sutured in place, good blood return, all ports aspirated, flushed, capped and sterile dressing applied Post Procedure X-Ray: tip of catheter in good position and no pneumothorax seen Patient Tolerated Procedure: well Complications: none Intubation Time out performed: Yes sedative: Etomidate Mg Given: 20 paralytic: Vecuronium Mg Given: 10 Laryngoscope: Ana Rosa ET Tube Size: 8 ET Tube Uncuffed: No Tube Secured Depth (cm): 24 Tube Secured Location: teeth Tube Placement Confirmation: visualized tube passing through cords, equal breath sounds bilaterally and no breath sounds over epigastrium Patient Tolerated Procedure: well Intubation Complications: none Course Vital Signs: Vital signs: Vital Signs Temperature 97.6 F 09/01/23 21:03 Pulse Rate 101 H 09/01/23 21:03 Respiratory Rate 14 09/01/23 21:03 Blood Pressure 101/75 09/01/23 21:03 Pulse Oximetry 97 09/01/23 21:03 Oxygen Delivery Me thod Mechanical Ventil ation 09/01/23 21:35 Oxygen Flow Rate 2 09/01/23 18:35 Fraction of Inspir ed Oxygen 40 09/01/23 20:40 MDM - General Adult Medical Decision Making Patient presents here with altered mental status he is hypotensive here as well I took patient over from Dr. Bearden. He is pending blood work and CT scan. He does have a UTI start antibiotics I did intubate him as he is altered did place a central line as well because he is required pressors. He is given 2 L of fluids here he does have the appearance of fluid overload his internal jugular was dilated on central line placement did not get more fluids and 2 L as I feel will do more harm. Medical Records I reviewed the patient's medical records. Lab Data I reviewed the patient's lab results. 09/01/23 18:47 09/01/23 18:[address] 09/01/23 15:54 IMPRESSION: Old lacunar disease. No acute intracranial finding. ASSESSMENT: ASPECTS (Donya Stroke Program Early CT Score) is 10. Abdomen/Pelvis CT 09/01/23 18:10 IMPRESSION: 1. Limited exam due to motion and streak artifact 2. Cholelithiasis 3. Ascites 4. Anasarca 5. Cardiomegaly 6. Small pleural effusions 7. Noncalcified right lower lobe pulmonary nodule. Further evaluation or short-term follow-up recommended per Fleischner society guidelines as described above REFERENCES: Isaias Graff, et al. Guidelines for Management of Incidental Pulmonary Nodules Detected on CT Images: From the Fleischner Society 2017. Radiology. 2017;284(1):228-243. Chest X-Ray 09/01/23 22:45 IMPRESSION: 1. Increasing left lower lobe infiltrate or atelectasis. 2. Other findings not significantly changed. Laboratory Results WBC 7.48 10^3/uL (3.29-11.43) 09/01/23 16:12 RBC 4.35 10^6/uL (3.85-5.65) 09/01/23 16:12 Hgb 12.80 g/dL (11.27-16.99) 09/01/23 18:47 Hct 40.9 % (37-53) 09/01/23 18:47 MCV 100.5 fl (82-101) 09/01/23 16:12 MCH 32.2 pg (27-33) 09/01/23 16:12 MCHC 32.0 g/dL (30-55) 09/01/23 16:12 RDW 14.5 % (12.1-15.1) 09/01/23 16:12 Plt Count 115 10^3/cmm (157-399) L 09/01/23 16:12 MPV 11.5 fL (7.4-10.4) H 09/01/23 16:12 Neut % (Auto) 81.7 % 09/01/23 16:12 Lymph % (Auto) 10.2 % 09/01/23 16:12 [place] % (Auto) 7.6 % 09/01/23 16:12 Eos % (Auto) 0.0 % 09/01/23 16:12 Baso % (Auto) 0.1 % 09/01/23 16:12 Neut # (Auto) 6.11 10^3/uL (1.8-7.7) 09/01/23 16:12 Lymph # (Auto) 0.8 10^3/uL (0.8-4.8) 09/01/23 16:12 [place] # (Auto) 0.6 10^3/uL (0.2-0.9) 09/01/23 16:12 Eos # (Auto) 0.0 10^3/uL (0.0-0.8) 09/01/23 16:12 Baso # (Auto) 0.0 10^3/uL (0.0-0.1) 09/01/23 16:12 Nucleated RBC % (auto) 0 % 09/01/23 16:12 Nucleated RBCs # 0.0 /100WBC 09/01/23 16:12 PT 57.50 SECONDS (12.1-14.9) H 09/01/23 16:12 INR 6.21 (0.8-1.2) H* 09/01/23 16:12 APTT 45.9 SECONDS (23.9-36.7) H 09/01/23 16:12 Specimen Type Arterial 09/01/23 16:11 Sample Site Brachial, right 09/01/23 16:11 ABG pH 7.35 (7.35-7.45) 09/01/23 16:11 ABG pCO2 39.4 mmHg (35-45) 09/01/23 16:11 ABG pO2 82.1 mmHg (80.0-100.0) 09/01/23 16:11 ABG PO2/FiO2 Ratio 0 09/01/23 16:11 ABG HCO3 21.7 mmol/L (22-26) L 09/01/23 16:11 ABG O2 Saturation 96.6 09/01/23 16:11 ABG Base Excess -3.6 mmol/L (-2.0-2.0) L 09/01/23 16:11 Dimitrios Test N/a 09/01/23 16:11 A-a O2 Gradient Not Reportable 09/01/23 16:11 Hematocrit 40.9 % (42-52) L 09/01/23 16:11 Hgb O2 Saturation 93.9 % (95-100) L 09/01/23 16:11 Carboxyhemoglobin 2.5 %THgb (0.4-20.1) 09/01/23 16:11 Methemoglobin 0.2 % (0.4-1.5) L 09/01/23 16:11 Total Hemoglobin 13.4 g/dL (14-18) L 09/01/23 16:11 Sodium 133.0 mmol/L (131-143) 09/01/23 16:11 Potassium 4.8 mmol/L (3.5-5.0) 09/01/23 16:11 Glucose 218.0 mg/dL (70-115) H 09/01/23 16:11 Ionized Calcium 1.1 mmol/L (1.1-1.4) 09/01/23 16:11 O2 Delivery Device Nc 09/01/23 16:11 O2 Liters/Min 2.0 % 09/01/23 16:11 FiO2 2.0 % 09/01/23 16:11 Bombsight Specialist ID glc 09/01/23 16:11 Sodium 136 mmol/L (136-145) 09/01/23 18:47 Potassium 4.5 mmol/L (3.5-5.1) 09/01/23 18:47 Chloride 101 mmol/L (98-107) 09/01/23 18:47 Carbon Dioxide 21 mmol/L (22-29) L 09/01/23 18:47 Anion Gap 18.5 (5-19) 09/01/23 18:47 BUN 62 mg/dL (8-23) H 09/01/23 18:47 Creatinine 2.8 mg/dL (0.7-1.2) H 09/01/23 18:47 GFR Calculation 23.0 mL/min (90-130) L 09/01/23 18:47 Glucose 190 mg/dL (65-115) H 09/01/23 18:47 POC Glucose 278 mg/dL (70-110) H 09/01/23 16:08 Estimat Average Glucose 189 09/01/23 16:12 Hemoglobin A1c 8.2 % (4.0-6.0) H 09/01/23 16:12 Calculated Osmolality 305 mOsm/kg (285-295) H 09/01/23 18:47 Lactic Acid 4.0 mmol/L (0.5-2.2) H 09/01/23 16:12 Lactic Acid (Sepsis) 3.2 mmol/L (0.5-2.2) H 09/01/23 18:47 Calcium 8.0 mg/dL (8.5-10.5) L 09/01/23 18:47 Magnesium 2.3 mg/dL (1.7-2.3) 09/01/23 18:47 Total Bilirubin 1.8 mg/dL (0.15-1.2) H 09/01/23 18:47 AST 433 U/L (0-40) H 09/01/23 18:47 ALT 303 U/L (0-41) H 09/01/23 18:47 Alkaline Phosphatase 99 U/L (40-130) 09/01/23 18:47 Ammonia 32 umol/L (16-60) 09/01/23 18:47 Creatine Kinase 216 U/L (39-308) 09/01/23 18:47 Troponin T Baseline 177 ng/L (0-15) H* 09/01/23 16:12 Troponin T 120 Minute 209.8 ng/L (0-15) H 09/01/23 18:47 Delta Troponin T 32.8 ABS# (0-10) H* 09/01/23 18:47 NT-Pro-B Natriuret Pep Cancelled 09/01/23 16:12 Total Protein 5.8 g/dL (6.6-8.7) L 09/01/23 18:47 Albumin 3.1 g/dL (3.5-5.2) L 09/01/23 18:47 Globulin 2.7 g/dL (1.3-4.6) 09/01/23 18:47 Lipase 13 U/L (13-60) 09/01/23 18:47 Urine Color Dark yellow (Yellow) 09/01/23 16:45 Urine Appearance Sl hazy (CLEAR) A 09/01/23 16:45 Urine pH 5 (5-7) 09/01/23 16:45 Ur Specific Jackson 1.025 (1.005-1.030) 09/01/23 16:45 Urine Protein 3+ (Negative) H 09/01/23 16:45 Urine Glucose (UA) Norm (Normal) 09/01/23 16:45 Urine Ketones Negative (Negative) 09/01/23 16:45 Urine Blood 2+ (Negative) H 09/01/23 16:45 Urine Nitrate Positive (Negative) H 09/01/23 16:45 Urine Bilirubin 2+ (Negative) H 09/01/23 16:45 Urine Urobilinogen Norm mg/dL (Negative) 09/01/23 16:45 Ur Leukocyte Esterase 1+ (Negative) H 09/01/23 16:45 Urine RBC 0-4 /hpf (0-2) H 09/01/23 16:45 Urine WBC 0-4 /hpf (0-5) H 09/01/23 16:45 Ur Squamous Epith Cells 0-4 /hpf (0-5) H 09/01/23 16:45 Amorphous Sediment Not Reportable 09/01/23 16:45 Urine Bacteria 2+ /hpf (NONE) H 09/01/23 16:45 Hyaline Casts 0-4 /lpf H 09/01/23 16:45 Salicylates 1.2 mg/dL (3-10) L 09/01/23 18:47 Urine Opiates Screen Negative ng/mL (Negative) 09/01/23 16:45 Acetaminophen < 5.0 ug/mL (10-30) L 09/01/23 18:47 Ur Barbiturates Screen Negative ng/mL (Negative) 09/01/23 16:45 Ur Phencyclidine Scrn Negative ng/mL (Negative) 09/01/23 16:45 Ur Amphetamines Screen Negative ng/mL (Negative) 09/01/23 16:45 U Benzodiazepines Scrn Negative ng/mL (Negative) 09/01/23 16:45 Urine Cocaine Screen Negative ng/mL (Negative) 09/01/23 16:45 U Marijuana (THC) Screen Negative ng/mL (Negative) 09/01/23 16:45 Ethyl Alcohol < 10 mg/dL (0-10) 09/01/23 18:47 All radiology interpretation(s) finalized by discharge Critical Care Time Critical Care Time: Critical Care Time: Yes Total Critical Care Time: 55 Attestation: The high probability of a clinically significant, sudden or life threatening deterioration of the patient's gu/neuro system(s) required my full and direct attention, intervention and personal management. The critical care time is as shown. This time is in addition to time spent performing any reported procedures but includes the following: [x] Data and vital sign review and interpretation [x] Patient assessment, examination and intervention [x] Documentation [x] Medication orders and management Discharge Plan Discharge Patient Disposition: Admitted As Inpatient Admit Provider: Yas Cochran Clinical Impression: Altered mental status, Acute cystitis, Acute hypotension, Diabetes mellitus, Chronic kidney disease, Acute liver failure, Acute exacerbation of CHF (congestive heart failure), Paroxysmal atrial fibrillation, Elevated troponin I level Condition: Stable Coding Level of Care Code ED Bd Special Education Teacher for Emelia Huynh
[2023-09-01 16:21] LABS: ABG PCO2 39.4 mmHg (35-45); ABG PH Result 7.35 (7.35-7.45); Arterial Blood Gas Hematocrit 40.9 % (42-52); Base Excess ABG -3.6 mmol/L (-2.0-2.0); Blood Gas Operator Identificat glc; Blood Gas Sample Site Brachial, right; Blood Gas Sample Type Arterial; Carboxyhemoglobin 2.5 %THgb (0.4-20.1); HCO3 ABG 21.7 mmol/L (22-26); HGB O2 Sat 93.9 % (95-100); Ionized Calcium Level - ABG 1.1 mmol/L (1.1-1.4); Methemoglobin 0.2 % (0.4-1.5); Oxygen Device NC; Oxygen Saturation ABG 96.6; PO2 ABG 82.1 mmHg (80.0-100.0); PO2 FiO2 Ratio Arterial Blood 0; Potassium Level - ABG 4.8 mmol/L (3.5-5.0); Total Hemoglobin 13.4 g/dL (14-18)
[2023-09-01] MEDS: sodium chloride 0.9% 1,000 ML 999 ML IV ×2 (16:22→21:53)
[2023-09-01 16:36] LABS: Basophils % 0.1 %; Hematocrit 43.7 % (37-53); Lymphocytes # 0.8 10^3/uL (0.8-4.8); Lymphocytes % 10.2 %; Mean Corpuscular Hemoglobin 32.2 pg (27-33); Mean Corpuscular Volume 100.5 fl (82-101); Mean Platelet Volume 11.5 fL (7.4-10.4); Monocytes # 0.6 10^3/uL (0.2-0.9); Monocytes % 7.6 %; Neutrophils # 6.11 10^3/uL (1.8-7.7); Neutrophils % 81.7 %; Nucleated Red Blood Cells % 0 %; Platelet Count 115 10^3/cmm (157-399); Red Blood Count 4.35 10^6/uL (3.85-5.65); Red Cell Distribution Width 14.5 % (12.1-15.1); White Blood Count 7.48 10^3/uL (3.29-11.43)
[2023-09-01] MEDS: DOPamine drip 400 MG/250 ML PREMIX 17.01 MG IV (16:38)
[2023-09-01 16:49] LABS: Partial Thromboplastin Time 45.9 SECONDS (23.9-36.7)
[2023-09-01 16:58] LABS: INR 6.21 (0.8-1.2)
[2023-09-01 17:00] LABS: Troponin(5th) Baseline 177 ng/L (0-15)
--- NOTE | 2023-09-01 17:14 | ECG_ITS ---
[facility] Test Date: 2023-09-01 Pat Name: Suleman Jacobs Department: Room: Gender: Male Retirement Plan Specialist: : 1960 Requested By: Sage Rodriguez Order Number: [id number] Alison MD: Wendy Ma M.D. Measurements Intervals [place] Rate: 119 P: 0 [place]: 0 QRS: -81 QRSD: 154 T: 106 QT: 370 QTc: 521 Interpretive Statements ATRIAL FIBRILLATION WITH RAPID VENTRICULAR RESPONSE INTRAVENTRICULAR CONDUCTION DELAY [130+ ms QRS DURATION] Anterolateral NJ, likely old BNORMALITY IN I/aVL/V5/V6] Inferior NJ Compared to ECG 09/01/2023 15:54:02 No significant changes Electronically Signed On 09-02-2023 14:17:27 CANVAS CUTTER by Wendy Ma M.D. [email or web address]
[2023-09-01 17:31] LABS: Amphetamines Screen Urine Negative (Negative); Barbiturates Screen Urine Negative (Negative); Benzodiazepines Screen Urine Negative (Negative); Cocaine Screen Urine Negative (Negative); Opiate Screen Urine Negative (Negative); PCP Screen Urine Negative (Negative); THC Screen Urine Negative (Negative)
[2023-09-01 17:34] LABS: Add Urine Microscopic? YES; Bilirubin Urine 2+ (Negative); Blood Urine 2+ (Negative); Glucose Urine UA Norm (Normal); Ketones Urine Negative (Negative); Leukocyte Esterase Urine 1+ (Negative); Nitrate Urine Positive (Negative); Protein Urine 3+ (Negative); Specific Gravity, Urine 1.025 (1.005-1.030); Urine Appearance SL Hazy (CLEAR); Urine Color Dark Yellow (Yellow); Urobilinogen Urine Norm (Negative); pH Urine 5 (5-7)
[2023-09-01 17:36] LABS: Add Urine Culture? Yes; Bacteria Urine 2+ /hpf; Hyaline Casts Urine 0-4 /lpf; RBC Urine 0-4 /hpf (0-2); Squamous Epithelial Cell Urine 0-4 /hpf (0-5); WBC Urine 0-4 /hpf (0-5)
[2023-09-01] MEDS: norepinephrine 4 MG/250 ML BAG 18.75 MG IV (17:47)
[2023-09-01] MEDS: LORazepam 2 mg/mL INJ 1 mL 1 MG IVP (17:52)
--- NOTE | 2023-09-01 18:10 | CTR_ITS ---
PROCEDURE INFORMATION: Exam: CT Abdomen And Pelvis Without Contrast Exam date and time: 09/01/2023 6:15 PM Age: 63 years old Clinical indication: Bloating; Additional info: Abdominal pain TECHNIQUE: Imaging protocol: Computed tomography of the abdomen and pelvis without contrast. Radiation optimization: All CT scans at this facility use at least one of these dose optimization techniques: automated exposure control; mA and/or kV adjustment per patient size (includes targeted exams where dose is matched to clinical indication); or iterative reconstruction. REPORTING DATA: Count of CT and Cardiac NM exams in prior 12 months: This patient has received 0 known CTs and 0 known cardiac nuclear medicine studies in the 12 months prior to the current study. COMPARISON: US renal BI* [id number] 03/30/2023 10:59 AM RADIATION DOSE METRICS: Total DLP (mGy-cm): 1239.63 FINDINGS: Limitations: Study somewhat limited due to streak artifact created by the patient being scanned with the arms at the sides. The absence of intravenous contrast lessens the sensitivity of this study for solid organ abnormalities. Study is significantly limited by patient respiratory motion. Lungs: 10 mm noncalcified pulmonary nodule medial right lung base (series 4, image 11).For both low risk and high risk patients, consider CT Chest at 3 months, PET/CT or biopsy. (Reference: Isaias) Pleural spaces: There are small bilateral pleural effusions. Heart: The heart is moderately enlarged. Liver: Liver has somewhat nodular contours consistent with cirrhosis. Gallbladder and bile ducts: There is a 1.5 cm sized gallstone in the region of the neck of the gallbladder. There is no common bile duct dilation. Pancreas: The pancreas is normal. Spleen: The spleen is normal. Adrenal glands: The adrenal glands are normal. Kidneys and ureters: The kidneys are normal. There is no evidence of hydronephrosis. There is no evidence of renal or ureteral calcifications. Stomach and bowel: There is no evidence of colitis/diverticulitis. There is no evidence of intestinal obstruction. Appendix: A normal appendix is identified. Intraperitoneal space: There is a moderate amount of free intraperitoneal fluid present. There is no free intraperitoneal air. Vasculature: The aorta demonstrates moderate atherosclerotic calcification. Lymph nodes: There are small periaortic and iliac lymph nodes but no adenopathy. Urinary bladder: Urinary bladder is drained by Rhodes catheter. Reproductive: The prostate gland demonstrates nonspecific parenchymal calcifications. Bones/joints: Unremarkable. No acute fracture. Soft tissues: There is diffuse edema in the subcutaneous fat in keeping with anasarca. CT/CT abdomen pelvis wo con [id number] IMPRESSION: 1. Limited exam due to motion and streak artifact 2. Cholelithiasis 3. Ascites 4. Anasarca 5. Cardiomegaly 6. Small pleural effusions 7. Noncalcified right lower lobe pulmonary nodule. Further evaluation or short-term follow-up recommended per Fleischner society guidelines as described above REFERENCES: Isaias Graff et al. Guidelines for Management of Incidental Pulmonary Nodules Detected on CT Images: From the Fleischner Society 2017. Radiology. 2017;284(1):228-243.
[2023-09-01 18:19] LABS: Reflex Lactate Order REFLEX LACTIC ORDERD
[2023-09-01 19:09] LABS: Hematocrit 40.9 % (37-53)
[2023-09-01 19:28] LABS: Alanine Aminotransferase 303 U/L (0-41); Albumin Level 3.1 g/dL (3.5-5.2); Alkaline Phosphatase 99 U/L (40-130); Anion Gap 18.5 (5-19); Aspartate Amino Transferase 433 U/L (0-40); Blood Urea Nitrogen 62 mg/dL (8-23); Carbon Dioxide 21 mmol/L (22-29); Chloride 101 mmol/L (98-107); Creatine Phosphokinase 216 U/L (39-308); Globulin 2.7 g/dL (1.3-4.6); Glucose 190 mg/dL (65-115); Lipase 13 U/L (13-60); Magnesium 2.3 mg/dL (1.7-2.3); Osmolality Calculated 305 mOsm/kg (285-295); Potassium 4.5 mmol/L (3.5-5.1); Salicylate 1.2 mg/dL (3-10); Sodium 136 mmol/L (136-145); Total Bilirubin 1.8 mg/dL (0.15-1.2); Total Protein 5.8 g/dL (6.6-8.7)
[2023-09-01 19:29] LABS: Lactic Acid level (Lactate) 3.2 mmol/L (0.5-2.2)
[2023-09-01 19:31] LABS: Acetaminophen < 5.0 ug/mL (10-30); Alcohol Level < 10 mg/dL (0-10)
[2023-09-01 19:34] LABS: Ammonia 32 umol/L (16-60)
[2023-09-01 19:38] LABS: Troponin 5 2HR 209.8 ng/L (0-15); Troponin 5 2HR Delta 32.8 ABS# (0-10)
[2023-09-01] MEDS: etomidate 2 mg/mL INJ SDV 10 mL 20 MG IVP (19:44)
[2023-09-01] MEDS: vecuronium 10 mg SDV IVP (19:46)
--- NOTE | 2023-09-01 20:12 | XRR_ITS ---
PROCEDURE INFORMATION: Exam: XR Chest Exam date and time: 09/01/2023 8:05 PM Age: 63 years old Clinical indication: Other vascular access device placement or adjustment; Central line, non-tunnelled; Prior surgery; Surgery date: 6+ months; Surgery type: Pacemaker; Patient HX: Ett, og, central line placement TECHNIQUE: Imaging protocol: Radiologic exam of the chest. Views: 1 view. COMPARISON: CR (CHEST, ) 09/01/2023 5:45 PM FINDINGS: Limitations: The study is made with less than full inspiration. Tubes, catheters and devices: Endotracheal tube is in place with its tip 5 cm above the prerna. There is transvenous AICD in place with leads in appropriate position. Lungs: No focal infiltrate is identified. Pleural spaces: Unremarkable. No pleural effusion. No pneumothorax. Heart/Mediastinum: There is moderate cardiomegaly not significantly changed. Bones/joints: Unremarkable. XR/XR chest 1V portable [id number] IMPRESSION: Satisfactory position of endotracheal tube.
--- NOTE | 2023-09-01 20:12 | PC.NURSE ---
Pt intubated at 1949. ET tube is 23 at the lip.
[2023-09-01] MEDS: cefTRIAXone 1,000 MG in sodium chloride 0.9% (plus) 50 ML 100 MG IV (20:18)
--- NOTE | 2023-09-01 20:24 | P.HP_ITS ---
Providers/Chief Complaint Admitting Physician: Yas Cochran MD Primary Care Provider: Serenity Andersen DO Chief Complaint: stroke like symptoms History of Present Illness Suleman Jacobs is a 63 year old male with history of systolic CHF, status post AICD, pacemaker, chronic A-fib, on anticoagulating agent, was recently at [facility] for management of congestive heart failure he was discharged home, presented today for worsening shortness of breath and co nfusion, patient is intubated because he was combative and required central line placement for low blood pressure, stated that he has been confused for last 3 weeks, since 3 AM yesterday patient has not been able to speak properly which prompted his visit to the ER as per the he was cracking jokes at dinner table last night. He does not drink alcohol, he is not ex-smoker. In the ER patient was confused, combative, was in shock third spacing, anasarca, acute liver failure, non-STEMI, supratherapeutic INR, Goals of care discussed with the , she is leaning towards DNI/DNI however wanted to discuss with the daughter before making final decision, is stating that no one ever told the family about any liver issues in the past I requested AFP and hepatitis panel UA unremarkable however has positive nitrates with bacteriuria without significant pyuria it is hazy Patient is intubated and sedated currently on Levophed Right-sided central line in place Review of Systems General: Reports: ROS unobtainable due to endotracheal tube and ROS unobtainable due to mental status Medications/Allergies Home Medications Medication Instructions Recorded Confirmed Last Taken Type albuterol sulfate 90 mcg/actuation 2 puff inhalation QID PRN 05/12/22 09/01/23 09/01/23 History aerosol inhaler Shortness Of Breath bumetanide 1 mg tablet 1 mg PO QAM 05/12/22 09/01/23 09/01/23 History carvedilol 25 mg tablet 50 mg PO BID 05/12/22 09/01/23 09/01/23 History rivaroxaban 15 mg tablet 15 mg PO QPM 05/12/22 03/29/23 03/28/23 History simvastatin 40 mg tablet 40 mg PO BEDTIME 05/12/22 03/29/23 03/28/23 History cholecalciferol (vitamin D3) 10 10 mcg PO QAM 03/29/23 03/29/23 03/28/23 History mcg (400 unit) capsule (Vitamin D3) garlic 1,000 mg capsule 1,000 mg PO BEDTIME 03/29/23 03/29/23 03/28/23 History insulin aspart U-100 100 unit/mL See Rx Instructions .Route .COMPLEX 03/29/23 09/01/23 Unknown History (3 mL) subcutaneous pen (Novolog FlexPen U-100 Insulin aspart) insulin detemir U-100 100 unit/mL 30 unit SUBCUT BEDTIME 03/29/23 09/01/23 08/30/23 History (3 mL) subcutaneous pen (Levemir FlexPen) sacubitril 49 mg-valsartan 51 mg 1 tab PO BID 03/29/23 03/29/23 03/28/23 History tablet (Entresto) umeclidinium 62.5 mcg-vilanterol 1 ea inhalation DAILY 03/29/23 09/01/23 08/31/23 History 25 mcg/actuation powdr for inhalation (Anoro Ellipta) Allergies Allergy/AdvReac Type Severity Reaction Status Date / Time No Known Allergies Allergy Verified 09/01/23 15:59 PFSH Acute PFSH: Medical History (Updated 09/01/23 @ 21:57 by Yas Cochran MD) Acute kidney injury superimposed on CKD Arthritis CHF (congestive heart failure) Chronic kidney disease Congestive heart failure COPD (chronic obstructive pulmonary disease) Decompensated heart failure Diabetes mellitus Elevated troponin Hidradenitis suppurativa History of cardiac pacemaker On home oxygen therapy Paroxysmal atrial fibrillation Thromboembolism Surgical History History of cataract surgery History of heart bypass surgery History of intravascular stent placement Aortic History of shoulder surgery Social History Smoking and tobacco/nicotine status: current every day tobacco/nicotine user Vitals/I&O/Wt Last Vital Signs Temp 97.6 F 09/01/23 15:52 Pulse 101 H 09/01/23 20:01 Resp 14 09/01/23 20:01 BP 101/75 09/01/23 20:01 Pulse Ox 98 09/01/23 20:01 O2 Del Method Mechanical Ventilation 09/01/23 20:01 O2 Flow Rate 2 09/01/23 18:35 09/01/23 09/01/23 09/01/23 06:59 14:59 22:59 Intake Total 1041.408 / 1041.408 Balance 1041.408 / 1041.408 Weight last 48 hrs Weight 90.718 kg Physical Exam Narrative: Anasarca Third spacing Pallor Mechanically ventilated intubated sedated Currently on Levophed at 9 mics FiO2 40% PEEP 6 Distended abdomen with ascites Noticeably cyanotic toes Skin mottling noted Low urine output Pupils are reactive to light Right central line in place Rhodes catheter in place Urinary Catheter Management: Rhodes: Cath Placed During This Visit: yes Reason for Continuing Indwelling Catheter: Accurate Measurement of Urinary Output in Critically Ill Patients Urinary Catheter Date of Insertion: 09/01/23 Urinary Catheter Time of Insertion: 16:00 Data 09/01/23 18:47 09/01/23 18:47 Micro: Microbiology 09/01/23 16:20 Blood Culture - Preliminary Blood SPECIMEN COLLECTED 09/01/23 16:29 Blood Culture - Preliminary Blood SPECIMEN COLLECTED A&P Assessment and plan (1) Altered mental status: (2) Acute hypotension: (3) Acute liver failure: (4) Acute exacerbation of CHF (congestive heart failure): (5) Anasarca: (6) Supratherapeutic INR: (7) Endotracheally intubated: (8) Respiratory failure requiring intubation: (9) Paroxysmal atrial fibrillation: (10) Diabetes mellitus: (11) History of cardiac pacemaker: (12) Chronic kidney disease: Plan Respiratory failure requiring mechanical ventilation FiO2 40% PEEP 6 Patient had to be intubated because of combative behavior requiring stent line placement Acute liver failure with metabolic encephalopathy, jaundice, high bilirubin, cognitive impairment and abnormal transaminases Etiology unknown Patient seems to have liver cirrhosis on CT abdomen pelvis, as per the patient does not drink alcohol, he is an active smoker, no previous history of hepatitis, Ascites third spacing Rule out SBP we will request diagnostic paracentesis Start broad-spectrum antibiotics Non-STEMI not a candidate for anticoagulation, supratherapeutic INR Systolic CHF exacerbation Not a candidate of Lasix currently requiring Levophed for low blood pressure Patient has an AICD and a pacemaker Chronic kidney disease: Creatinine at baseline Paroxysmal A-fib hold Entresto and Coreg along Bumex Hold rivaroxaban Guarded prognosis Discussed with the , is leaning towards DNR/DNI status however wanted to discuss with the rest of the family members N.p.o. Will request gallbladder ultrasound History taken from the Spoke with the ER physician Attestations Medical Necessity Statement*: More than 2 midnights anticipated Coding Level of Care Code Critical Care >/= 30 minutes Critical care time (in minutes): 50 The high probability of a clinically significant, sudden or life threatening deterioration, as referenced in this documentation, required my full and direct attention, intervention and personal management. The critical care time shown is in addition to time spent performing any reported separately billable procedures and includes the following: [x] Data and vital sign review and interpretation [x ] Patient assessment, examination and intervention [x] Medication orders and m anagement [x] Patient/Family updates as able [x] Care Coordination and Documentation. Diagnoses Altered mental status R41.82 Acute hypotension I95.9 Acute liver failure K72.00 Acute exacerbation of CHF (congestive heart failure) I50.9 Anasarca R60.1 Supratherapeutic INR R79.1 Endotracheally intubated Z97.8 Respiratory failure requiring intubation J96.90 Paroxysmal atrial fibrillation I48.0 Diabetes mellitus E11.9 History of cardiac pacemaker Z95.0 Chronic kidney disease N18.9
[2023-09-01] MEDS: water for injection-sterile SDV 10 mL IVP (20:26)
[2023-09-01] MEDS: azithromycin 500 MG in sodium chloride 0.9% 250 ML 250 MG IV (21:57)
[2023-09-01 22:22] LABS: ABG PCO2 48.7 mmHg (35-45); ABG PH Result 7.22 (7.35-7.45); Arterial Blood Gas Hematocrit 45.2 % (42-52); Blood Gas Allen Test Pos; Blood Gas Sample Site Brachial, right; Blood Gas Sample Type Arterial; HCO3 ABG 19.9 mmol/L (22-26); Oxygen Device VENT; PO2 FiO2 Ratio Arterial Blood 0
[2023-09-01 22:40] LABS: Procalcitonin 0.22 ng/mL (0-0.5); Thyroid Stimulating Hormone 7.11 uIU/mL (0.27-4.20)
--- NOTE | 2023-09-01 22:45 | XRR_ITS ---
PROCEDURE INFORMATION: Exam: XR Chest Exam date and time: 09/01/2023 11:49 PM Age: 63 years old Clinical indication: Patient HX: Absent breath spunda; Desat TECHNIQUE: Imaging protocol: Radiologic exam of the chest. Views: 1 view. COMPARISON: CR XR chest 1V portable [id number] 09/01/2023 8:05 PM FINDINGS: Limitations: The study is made with less than full inspiration. Tubes, catheters and devices: Endotracheal tube tip is 3.5 cm above the prerna. Right jugular central venous catheter tip is in the superior vena cava not significantly changed. There is an orogastric tube in place extending into the stomach. Tip is not included on this exam. There is transvenous AICD in place with leads in appropriate position. Lungs: There is some increasing infiltrate or atelectasis in the retrocardiac left lower lobe. Pleural spaces: Unremarkable. No pleural effusion. No pneumothorax. Heart/Mediastinum: Heart is mildly enlarged. Bones/joints: Unremarkable. XR/XR chest 1V portable [id number] IMPRESSION: 1. Increasing left lower lobe infiltrate or atelectasis. 2. Other findings not significantly changed.
[2023-09-01] MEDS: DOBUTamine drip 500 MG/250 ML PREMIX 16.74 MG IV (22:53)
[2023-09-01 22:58] LABS: Troponin 5 6HR 240.3 ng/L (0-15); Troponin 5 6HR Delta 63.3 ng/L (0-12)
[2023-09-01 23:01] LABS: NT Pro B Type Natriuretic Pept 67779 pg/mL (0-125)
[2023-09-01 23:07] LABS: Glucose Point of Care 159 mg/dL (70-110)
--- NOTE | 2023-09-01 23:15 | P.DES_ITS ---
Discharge Providers DDS Date of Admission: 09/01/23 20:17 Date Summary Completed: 09/01/23 Attending Provider at Admission: Yas Cochran MD Time of : 23:01 Attending Provider at Discharge: Yas Cochran MD Primary Care Provider: DO LEIGHA Tobar Diagnoses Hospital Diagnoses (1) Altered mental status: (2) Acute hypotension: (3) Acute liver failure: (4) Acute exacerbation of CHF (congestive heart failure): (5) Anasarca: (6) Supratherapeutic INR: (7) Endotracheally intubated: (8) Respiratory failure requiring intubation: (9) Paroxysmal atrial fibrillation: (10) Diabetes mellitus: (11) History of cardiac pacemaker: (12) Chronic kidney disease: Reason for Visit Reason for Visit stroke like symptoms Summary Date and Time of Date of : 09/01/23 Time of : 23:01 Summary Summary: 63-year-old male with AICD, pacemaker with history of ischemic cardiomyopathy, was recently discharged from [facility] at that time he was told he has EF of 23%, who was admitted for altered mental status, metabolic encephalopathy, non-STEMI, acute liver failure, he was diagnosed with cardiogenic shock he was intubated in the ER, he was put on Levophed and required dobutamine it did not improve his blood pressure, he started becoming hypoxic, was contacted who came back in the ICU made him DNR/DNI, patient 230 Echo showed EF 6 to 8% Cardiology was consulted who recommended comfort care No signs of cardiac tamponade, patient was on anticoagulating agent at home Likely etiology decompensated heart failure Additional Data Confirmation of as documented by pronouncing clinician: no pulse, no respirations and pupils fixed and dilated Family: at bedside, contacted, attempt made and not available Additional persons at bedside: nursing staff Attending/PCP notified?: I am attending Was code activated?: No Autopsy requested?: No Advance directives?: No Hospice patient?: No Discharge Plan Discharge Patient Disposition: Condition: Stable Prescriptions: No Action albuterol sulfate 90 mcg/actuation HFA aerosol inhaler 2 puff inhalation QID PRN (Reason: Shortness Of Breath) bumetanide 1 mg tablet 1 mg PO QAM carvedilol 25 mg tablet 50 mg PO BID Rx Instructions: must administer with a meal/food rivaroxaban 15 mg tablet 15 mg PO QPM Rx Instructions: must administer with evening meal simvastatin 40 mg tablet 40 mg PO BEDTIME garlic 1,000 mg Capsule 1,000 mg PO BEDTIME Vitamin D3 10 mcg (400 unit) Capsule 10 mcg PO QAM insulin aspart U-100 [Novolog FlexPen U-100 Insulin] 100 unit/mL (3 mL) insulin pen See Rx Instructions .ROUTE .COMPLEX Rx Instructions: sliding scale tid prn (not used in 6 weeks as of 03/29/23 per pts and pt) Levemir FlexPen 100 unit/mL (3 mL) insulin pen 30 unit SUBCUT BEDTIME Anoro Ellipta 62.5-25 mcg/actuation blister with device 1 ea INHALATION DAILY Entresto 49-51 mg tablet 1 tab PO BID Hold Instructions: Resume on 04/27/23. Patient will see his children's service worker before resuming it. Referrals: Serenity Andersen DO [Primary Care Provider] - Patient Instructions: Hyponatremia (ED), Benzodiazepine Use Disorder (ED), Dementia (ED), Non-diabetic Hypoglycemia (ED), Hypoglycemia in a Person with Diabetes (ED), Concussion (ED), Alcohol Intoxication (ED), Subarachnoid Hemorrhage (GEN), Altered Mental Status (ED) DS Attestations Time Spent in /Discharge Care*: greater than 30 min Quality - AMI: AMI present?: No Quality - Stroke: CVA present?: No Quality - VTE: VTE present?: No Coding Level of Care Code Acute Code for [facility] Diagnoses Altered mental status R41.82 Acute hypotension I95.9 Acute liver failure K72.00 Acute exacerbation of CHF (congestive heart failure) I50.9 Anasarca R60.1 Supratherapeutic INR R79.1 Endotracheally intubated Z97.8 Respiratory failure requiring intubation J96.90 Paroxysmal atrial fibrillation I48.0 Diabetes mellitus E11.9 History of cardiac pacemaker Z95.0 Chronic kidney disease N18.9
--- NOTE | 2023-09-01 23:26 | PC.NURSE ---
This nurse received patient from ED at 2054 with patients at bedside. Information provided from ad bedside to help with admission. According to patient was recently released from main campus medical center in [place], [place] a few weeks ago for heart failure. Patients was spoken to by physician about code status and understood and wished to leave patient a full code at the time. then left facility and bench repair technician came to perform and echo on patient and was found to only have an EF of 6, at this time patient then started to decline with a BP obtaining of 55/44 and oxygen saturation of 55% on mechanical ventilation. Physician notified and requested stat chest xray and respiratory called and arrived at this time and had manually started bagging patient, dobutamine started at this time along with levophed and had arrived back to facility at this time. Physician then verbally spoke with and requested to allow patient to pass naturally. [facility]TS notified @ 9230 and given a referral number of [phone] and spoke with Patt Gramajo. [facility] requested that we do not release body until we are contacted by [facility] to clarify if patient is a candidate or not.
--- NOTE | 2023-09-01 23:49 | PC.NURSE ---
Patient time of at 2301. 2 Nurses verified time of . Dr. Cochran and refrigeration houseman notified of time of as well.
--- NOTE | 2023-09-02 00:01 | PC.NURSE ---
MTS called back and this nurse spoke with Gabriela Garcia and made aware that patient is an organ donor candidate.
[2023-09-02 00:38] LABS: Estmated Average Glucose 189; Hemoglobin A1C 8.2 % (4.0-6.0)
[2023-09-02 00:55] LABS: Hepatitis A Antibody IgM Non-Reactive (Nonreactive); Hepatitis B Core AB, Total Non-Reactive (Nonreactive); Hepatitis B Surface Antigen Non-Reactive (Nonreactive); Hepatitis C Virus Antibody Non-Reactive (Nonreactive)
[2023-09-02 01:39] LABS: Tumor Marker Alpha Fetoprotein 1.8 ng/mL (0-8.3)
[2023-09-02 02:12] LABS: Hepatitis B Surface AB 3.5 (11.5-1000)
== END 2023-09-02 00:55 | disposition expired ==
LOC: ER 19:28 → ICU 20:17
PROVIDERS: Family Medicine; Admitting Provider Internal Medicine; Emergency Provider Emergency Medicine; PCP Family Medicine; Visit Provider Internal Medicine
DX: I21.4 Non-ST elevation (NSTEMI) myocardial infarction (principal); G93.41 Metabolic encephalopathy; I50.23 Acute on chronic systolic (congestive) heart failure; J96.90 Respiratory failure, unspecified, unspecified whether with hypoxia or hypercapnia; K72.00 Acute and subacute hepatic failure without coma; N30.00 Acute cystitis without hematuria; M19.90 Unspecified osteoarthritis, unspecified site; N18.9 Chronic kidney disease, unspecified; E11.22 Type 2 diabetes mellitus with diabetic chronic kidney disease; Z99.81 Dependence on supplemental oxygen; I48.0 Paroxysmal atrial fibrillation; Z79.01 Long term (current) use of anticoagulants; F17.210 Nicotine dependence, cigarettes, uncomplicated; Z95.1 Presence of aortocoronary bypass graft; Z95.810 Presence of automatic (implantable) cardiac defibrillator; R79.1 Abnormal coagulation profile; R57.0 Cardiogenic shock; Z51.5 Encounter for palliative care; Z66 Do not resuscitate; K74.60 Unspecified cirrhosis of liver
CPT/HCPCS: 31500; 36415; 36416; 36556; 36600; 51702; 70450; 71045; 74176; 80051; 80053; 80306; 80307; 81001; 82105; 82140; 82330; 82550; 82803; 82805; 82962; 83036; 83605; 83690; 83735; 83880; 84145; 84443; 84484; 85014; 85018; 85025; 85610; 85730; 86705; 86706; 86709; 86803; 87040; 87086; 87340; 93005; 93010; 94002; 96365; 96367; 99285; 99291; J0456; J0696; J1250; J1265; J2060; J3490; J7030; J7050